=== PATIENT | female | born 1980 | race Caucasian/White ===

== ENCOUNTER → 2017-05-22 | Outpatient (REF) | payer MEDICARE, OTHER ==
[2017-05-22 14:27] LABS: CHOLESTEROL LEVEL 196 MG/DL (<200); CHOLESTEROL RISK RATIO 4.355 (<5); FERRITIN 29 NG/ML (8-252); HDL CHOLESTEROL 45 MG/DL (>40); IRON (FE) 82 UG/DL (50-170); LDL CHOLESTEROL 74.4 MG/DL (<100); NON-HDL-C 151 MG/DL; PERCENT SATURATION 24.9 % (13.2-45.0); TOTAL IRON BINDING CAPACITY 329 UG/DL (250-450); TRIGLYCERIDES LEVEL 383 MG/DL (<150)
[2017-05-24 00:07] LABS: FK 506 (TACROLIMUS) LABCORP 2.1 ng/mL (2.0-20.0)
== END ==
LOC: M LAB REF 13:51
DX: N18.3 Chronic kidney disease, stage 3 (moderate) (principal); Z48.22 Encounter for aftercare following kidney transplant; D63.1 Anemia in chronic kidney disease
CPT/HCPCS: 83550

== ENCOUNTER → 2017-06-07 | Outpatient (REF) | payer MEDICARE, OTHER ==
[2017-06-10 08:06] LABS: FK 506 (TACROLIMUS) LABCORP 6.3 ng/mL (2.0-20.0)
== END ==
LOC: M LAB REF 13:26
DX: N18.9 Chronic kidney disease, unspecified (principal); D63.1 Anemia in chronic kidney disease
CPT/HCPCS: 80197

== ENCOUNTER 2017-07-03 06:19 | Emergency (ER) | payer MEDICARE, OTHER ==
[2017-07-03 07:47] LABS: BASO % 0.1 % (0.0-1.0); EOS % 0.3 % (0.0-3.0); HEMATOCRIT 33.7 % (36.0-47.0); HEMOGLOBIN 10.7 g/dl (12.0-16.0); IMMATURE GRANULOCYTE % 0.4 % (0-3.0); LYMPH # 0.9 10^3/uL (1.5-4.5); LYMPH % 5.9 % (24.0-44.0); MEAN CORPUSCULAR HGB CONC 31.8 g/dl (32.0-36.5); MEAN CORPUSCULAR VOLUME 85.1 fl (80.0-96.0); MONO # 0.9 10^3/uL (0.0-0.8); MONO % 6.1 % (0.0-5.0); NEUTROPHILS # 13.6 10^3/uL (1.8-7.7); NEUTROPHILS % 87.2 % (36.0-66.0); PLATELET COUNT, AUTOMATED 271 10^3/uL (150-450); RED BLOOD COUNT 3.96 10^6/uL (4.00-5.40); RED CELL DISTRIBUTION WIDTH 14.7 % (11.5-14.5); WHITE BLOOD COUNT 15.5 10^3/uL (4.0-10.0)
[2017-07-03] MEDS: NS 1,000 ML IV (07:47)
[2017-07-03] MEDS: ACETAMINOPHEN 325 MG TAB PO (07:47)
[2017-07-03 08:10] LABS: ALBUMIN 3.7 GM/DL (3.2-5.2); ALBUMIN/GLOBULIN RATIO 1.12 (1.00-1.93); ALKALINE PHOSPHATASE 58 U/L (45-117); ALT/SGPT 15 U/L (12-78); ANION GAP 8 MEQ/L (8-16); AST/SGOT 6 U/L (7-37); BILIRUBIN,DIRECT < 0.1 MG/DL (0.0-0.2); BILIRUBIN,TOTAL 0.4 MG/DL (0.2-1.0); BLOOD UREA NITROGEN 26 MG/DL (7-18); CALCIUM LEVEL 8.6 MG/DL (8.5-10.1); CARBON DIOXIDE LEVEL 27 MEQ/L (21-32); CHLORIDE LEVEL 102 MEQ/L (98-107); GLOMERULAR FILTRATION RATE 25.5 (>60); GLUCOSE, FASTING 162 MG/DL (70-100); POTASSIUM SERUM 4.1 MEQ/L (3.5-5.1); SODIUM LEVEL 137 MEQ/L (136-145)
[2017-07-03 08:10] LABS: LACTIC ACID SEPSIS PROTOCOL 2.3 MMOL/L (0.4-2.0)
[2017-07-03 08:20] LABS: INFLUENZA A AMPLIFICATION NEGATIVE (NEGATIVE); INFLUENZA B AMPLIFICATION NEGATIVE (NEGATIVE)
[2017-07-03 09:12] LABS: APPEARANCE, URINE CLEAR (CLEAR); BACTERIA, URINE AUTO 1+ (NEGATIVE); BILIRUBIN, URINE AUTO NEGATIVE (NEGATIVE); BLOOD, URINE BLOOD 2+ (NEGATIVE); COLOR, URINE YELLOW (YELLOW); GLUCOSE, URINE (UA) AUTO NEGATIVE (NEGATIVE); KETONE, URINE AUTO NEGATIVE (NEGATIVE); LEUKOCYTE ESTERASE, URINE AUTO TRACE (NEGATIVE); MUCUS, URINE SMALL (NEGATIVE); NITRITE, URINE AUTO NEGATIVE (NEGATIVE); PROTEIN, URINE AUTO NEGATIVE (NEGATIVE); RBC, URINE AUTO 7 /HPF (0-3); SPECIFIC GRAVITY URINE AUTO 1.013 (1.002-1.035); SQUAMOUS EPITHELIAL CELL UR AU 1 /HPF (0-6); UROBILINOGEN, URINE AUTO 0.2 mg/dL (0.0-2.0); WBC, URINE AUTO 11 /HPF (0-3)
[2017-07-03] MEDS: CEFTRIAXONE SOD 2 GM in APPROPRIATE DILUENT 1 EA IV (11:03)
== END 2017-07-03 11:14 | disposition home or self-care (01) ==
LOC: M ED 06:19
DX: R50.9 Fever, unspecified (principal); D84.9 Immunodeficiency, unspecified; N28.9 Disorder of kidney and ureter, unspecified; Z94.0 Kidney transplant status; Z79.899 Other long term (current) drug therapy; Z88.1 Allergy status to other antibiotic agents; Z88.8 Allergy status to other drugs, medicaments and biological substances
CPT/HCPCS: 71046

== ENCOUNTER → 2017-07-06 | Outpatient (REF) | payer MEDICARE, OTHER | LOC: M LAB REF 10:21 | DX: N18.9 Chronic kidney disease, unspecified (principal); D63.1 Anemia in chronic kidney disease | CPT/HCPCS: 80197 ==

== ENCOUNTER 2017-07-29 22:35 | Emergency (ER) | payer MEDICARE, OTHER ==
[2017-07-29 23:52] LABS: BASO % 0.3 % (0.0-1.0); EOS # 0.2 10^3/uL (0.0-0.50); EOS % 1.5 % (0.0-3.0); HEMATOCRIT 29.9 % (36.0-47.0); HEMOGLOBIN 9.6 g/dl (12.0-16.0); IMMATURE GRANULOCYTE % 0.6 % (0-3.0); LYMPH % 18.5 % (24.0-44.0); MEAN CORPUSCULAR HEMOGLOBIN 27.3 pg (27.0-33.0); MEAN CORPUSCULAR HGB CONC 32.1 g/dl (32.0-36.5); MEAN CORPUSCULAR VOLUME 84.9 fl (80.0-96.0); MONO # 0.7 10^3/uL (0.0-0.8); MONO % 6.2 % (0.0-5.0); NEUTROPHILS % 72.9 % (36.0-66.0); PLATELET COUNT, AUTOMATED 328 10^3/uL (150-450); RED BLOOD COUNT 3.52 10^6/uL (4.00-5.40); RED CELL DISTRIBUTION WIDTH 13.7 % (11.5-14.5)
== END 2017-07-30 00:24 | disposition home or self-care (01) ==
LOC: M ED 07-30 00:24
DX: N92.0 Excessive and frequent menstruation with regular cycle (principal); N83.201 Unspecified ovarian cyst, right side; N83.202 Unspecified ovarian cyst, left side; N80.9 Endometriosis, unspecified; Z79.899 Other long term (current) drug therapy; Z88.0 Allergy status to penicillin; Z88.8 Allergy status to other drugs, medicaments and biological substances
CPT/HCPCS: 76856

== ENCOUNTER → 2017-08-24 | Outpatient (REF) | payer MEDICARE, OTHER ==
[2017-08-24 14:35] LABS: VITAMIN B12 LEVEL 422 PG/ML
[2017-08-24 14:36] LABS: FOLATE 13.2 NG/ML
[2017-08-26 08:07] LABS: FK 506 (TACROLIMUS) LABCORP 2.9 ng/mL (2.0-20.0)
== END ==
LOC: M LAB REF 13:46
DX: N18.9 Chronic kidney disease, unspecified (principal); D63.1 Anemia in chronic kidney disease; N92.0 Excessive and frequent menstruation with regular cycle
CPT/HCPCS: 82746

== ENCOUNTER → 2017-10-10 | Outpatient (REF) | payer MEDICARE, OTHER ==
[2017-10-12 08:06] LABS: FK 506 (TACROLIMUS) LABCORP 5.9 ng/mL (2.0-20.0)
== END ==
LOC: M LAB REF 13:30
DX: N18.9 Chronic kidney disease, unspecified (principal); D63.1 Anemia in chronic kidney disease
CPT/HCPCS: 80197

== ENCOUNTER → 2018-01-05 | Outpatient (REF) | payer MEDICARE, OTHER ==
[2018-01-05 14:52] LABS: FERRITIN 10 NG/ML (8-252); IRON (FE) 36 UG/DL (50-170); PERCENT SATURATION 11.3 % (13.2-45.0); TOTAL IRON BINDING CAPACITY 320 UG/DL (250-450)
[2018-01-08 08:35] LABS: FK 506 (TACROLIMUS) LABCORP 4.9
== END ==
LOC: M LAB REF 13:20
DX: N18.3 Chronic kidney disease, stage 3 (moderate) (principal); D63.1 Anemia in chronic kidney disease
CPT/HCPCS: 83550

== ENCOUNTER 2018-01-13 21:20 | Inpatient (IN) | payer MEDICARE, OTHER ==
[2018-01-13] MEDS: MYCOPHENOLATE MOFETIL 250 MG CAP (J7517) PO (22:19)
[2018-01-13] MEDS: TACROLIMUS 1 MG CAP (J7507) PO (22:20)
[2018-01-13] MEDS: NS 1,000 ML IV (22:33)
[2018-01-13] MEDS: HYDROMORPHONE HCL 0.5 MG/ 0.5 ML SYRINGE (J1170 PER 1) IV (23:10)
[2018-01-14] MEDS: NORCO, ANEXSIA 5/325MG TABLET (HYDROcodone/ACETAMINOPHEN) PO ×5 (01:06→20:20)
[2018-01-14 01:47] LABS: HEMATOCRIT 28.8 % (36.0-47.0); HEMOGLOBIN 9.2 g/dl (12.0-15.5); MEAN CORPUSCULAR HEMOGLOBIN 26.6 pg (27.0-33.0); MEAN CORPUSCULAR HGB CONC 31.9 g/dl (32.0-36.5); MEAN CORPUSCULAR VOLUME 83.2 fl (80.0-96.0); PLATELET COUNT, AUTOMATED 295 10^3/uL (150-450); RED BLOOD COUNT 3.46 10^6/uL (4.00-5.40); RED CELL DISTRIBUTION WIDTH 14.9 % (11.5-14.5); WHITE BLOOD COUNT 14.2 10^3/uL (4.0-10.0)
[2018-01-14 02:10] LABS: ALBUMIN/GLOBULIN RATIO 0.77 (1.00-1.93); ALKALINE PHOSPHATASE 54 U/L (45-117); ALT/SGPT 12 U/L (12-78); ANION GAP 7 MEQ/L (8-16); AST/SGOT 9 U/L (7-37); BILIRUBIN,TOTAL 0.3 MG/DL (0.2-1.0); BLOOD UREA NITROGEN 20 MG/DL (7-18); CALCIUM LEVEL 7.8 MG/DL (8.5-10.1); CARBON DIOXIDE LEVEL 21 MEQ/L (21-32); CHLORIDE LEVEL 111 MEQ/L (98-107); CREATININE FOR GFR 2.36 MG/DL (0.55-1.30); GLOMERULAR FILTRATION RATE 24.7 (>60); GLUCOSE, FASTING 179 MG/DL (70-100); POTASSIUM SERUM 3.9 MEQ/L (3.5-5.1); SODIUM LEVEL 139 MEQ/L (136-145); TOTAL PROTEIN 6.9 GM/DL (6.4-8.2)
[2018-01-14 02:14] LABS: LACTIC ACID SEPSIS PROTOCOL 1.3 MMOL/L (0.4-2.0)
[2018-01-14] MEDS: NS 1,000 ML IV (05:20)
[2018-01-14] MEDS: HEPARIN SOD (PORCINE) 5000 UNITS/ML VIAL SC (05:20)
[2018-01-14] MEDS ORDERED: HEPARIN SOD (PORCINE) 5000 UNITS/ML VIAL IV (07:15)
[2018-01-14 08:13] LABS: PARTIAL THROMBOPLASTIN TIME 33.4 SECONDS (25.4-37.6)
[2018-01-14] MEDS: MYCOPHENOLATE SODIUM 360 MG PO ×2 (09:00→20:18)
[2018-01-14] MEDS ORDERED: ENTER DRUG NAME HERE (PATIENT'S OWN MED) PO (09:00)
[2018-01-14] MEDS: VITAMIN D 1,000 INTERNATIONAL UNITS TABLET PO (09:55)
[2018-01-14] MEDS: cefTRIAXone SOD 1 GM in D5W MINI-BAG PLUS 50 ML IV (09:55)
[2018-01-14] MEDS: TACROLIMUS 1 MG CAP (J7507) PO ×2 (09:56→20:19)
[2018-01-14] MEDS: PANTOPRAZOLE 40MG TAB (PROTONIX) PO (09:56)
[2018-01-14] MEDS: predniSONE 5 MG TAB PO (09:57)
[2018-01-14] MEDS: FERROUS SULFATE 325MG TAB PO (09:57)
[2018-01-14 10:32] LABS: AMORPHOUS SEDIMENT RFX SMALL (NEGATIVE); KETONE, URINE AUTO RFX NEGATIVE (NEGATIVE); LEUKOCYTE ESTERASE UR AUTO RFX 1+ (NEGATIVE); NITRITE, URINE AUTO RFX NEGATIVE (NEGATIVE); RBC, URINE AUTO RFX 6 /HPF (0-3); SPECIFIC GRAVITY UR AUTO RFX 1.019 (1.002-1.035); SQUAM EPITHELIAL CELL UR AURFX 1 /HPF (0-6); WBC, URINE AUTO RFX 11 /HPF (0-3)
[2018-01-14 11:03] LABS: CPK CREATINE PHOSPHOKINASE 18 U/L (26-192)
[2018-01-14] MEDS: HEPARIN DRIP 25,000 UNITS in APPROPRIATE DILUENT 1 EA IV (11:20)
[2018-01-14] MEDS: READI-CAT 2 PO ×2 (11:27→12:08)
[2018-01-14] MEDS: methylPREDNISolone INJ 125 MG/2 ML VIAL (J2930) IV (16:18)
[2018-01-14 18:26] LABS: PARTIAL THROMBOPLASTIN TIME 37.3 SECONDS (25.4-37.6)
[2018-01-14 18:29] LABS: ESTIMATED AVERAGE GLUCOSE 91 MG/DL (60-110); HEMOGLOBIN A1c 4.8 %
[2018-01-14 18:32] LABS: LIPASE 93 U/L (73-393)
[2018-01-14] MEDS: CARISOPRODOL 350 MG TAB PO (20:19)
[2018-01-14 23:56] LABS: PARTIAL THROMBOPLASTIN TIME 57.4 SECONDS (25.4-37.6)
[2018-01-15] MEDS: NORCO, ANEXSIA 5/325MG TABLET (HYDROcodone/ACETAMINOPHEN) PO ×5 (00:52→18:30)
[2018-01-15] MEDS: HEPARIN DRIP 25,000 UNITS in APPROPRIATE DILUENT 1 EA IV ×2 (05:25→21:26)
[2018-01-15 07:50] LABS: HEMATOCRIT 26.3 % (36.0-47.0); HEMOGLOBIN 8.2 g/dl (12.0-15.5); MEAN CORPUSCULAR HEMOGLOBIN 26.2 pg (27.0-33.0); MEAN CORPUSCULAR HGB CONC 31.2 g/dl (32.0-36.5); PLATELET COUNT, AUTOMATED 261 10^3/uL (150-450); RED BLOOD COUNT 3.13 10^6/uL (4.00-5.40); RED CELL DISTRIBUTION WIDTH 14.9 % (11.5-14.5); WHITE BLOOD COUNT 11.8 10^3/uL (4.0-10.0)
[2018-01-15 08:06] LABS: PARTIAL THROMBOPLASTIN TIME 82.5 SECONDS (25.4-37.6)
[2018-01-15] MEDS ORDERED: BENZONATATE 100 MG CAP PO (08:30)
[2018-01-15] MEDS ORDERED: medroxyPROGESTERone ACET IM SUSP 150 MG/ML VIAL (J1050) IM (09:00)
[2018-01-15 09:20] LABS: ANION GAP 9 MEQ/L (8-16); BLOOD UREA NITROGEN 23 MG/DL (7-18); CARBON DIOXIDE LEVEL 19 MEQ/L (21-32); CHLORIDE LEVEL 109 MEQ/L (98-107); GLOMERULAR FILTRATION RATE 24.2 (>60); GLUCOSE, FASTING 298 MG/DL (70-100); MAGNESIUM LEVEL 1.9 MG/DL (1.8-2.4); PHOSPHORUS LEVEL 0.8 MG/DL (2.5-4.9); POTASSIUM SERUM 4.8 MEQ/L (3.5-5.1); SODIUM LEVEL 137 MEQ/L (136-145)
[2018-01-15] MEDS: TACROLIMUS 1 MG CAP (J7507) PO ×2 (09:21→21:27)
[2018-01-15] MEDS: predniSONE 20 MG TAB PO (09:21)
[2018-01-15] MEDS: PANTOPRAZOLE 40MG TAB (PROTONIX) PO (09:21)
[2018-01-15] MEDS: guaiFENesin ER 600 MG TAB PO ×2 (09:21→21:27)
[2018-01-15] MEDS: VITAMIN D 1,000 INTERNATIONAL UNITS TABLET PO (09:21)
[2018-01-15] MEDS: FERROUS SULFATE 325MG TAB PO (09:22)
[2018-01-15] MEDS: cefTRIAXone SOD 1 GM in D5W MINI-BAG PLUS 50 ML IV (09:22)
[2018-01-15] MEDS: MYCOPHENOLATE SODIUM 360 MG PO ×2 (09:23→21:27)
[2018-01-15] MEDS: medroxyPROGESTERone ACET IM SUSP 150 MG/ML VIAL (J1050) IM (09:30)
[2018-01-15 11:04] LABS: HCG, SERUM QUANTITATIVE < 1.0 MIU/ML
[2018-01-15 13:10] LABS: PARTIAL THROMBOPLASTIN TIME 71.2 SECONDS (25.4-37.6)
[2018-01-15] MEDS ORDERED: GLUCOSE 4 GM CHEW TABLET PO (14:45)
[2018-01-15] MEDS ORDERED: GLUCAGON FOR INJ 1 MG VIAL (J1610) SC (14:45)
[2018-01-15] MEDS ORDERED: DEXTROSE 50% 50 ML SYRINGE IV (14:45)
[2018-01-15 16:25] LABS: BEDSIDE GLUCOSE 197 MG/DL (70-105)
[2018-01-15] MEDS: HumaLOG INSULIN (NovoLOG) PER UNIT SC (18:27)
[2018-01-15 20:37] LABS: BEDSIDE GLUCOSE 268 MG/DL (70-105)
[2018-01-15] MEDS: CARISOPRODOL 350 MG TAB PO (21:27)
[2018-01-16 07:29] LABS: HEMATOCRIT 28.6 % (36.0-47.0); HEMOGLOBIN 8.9 g/dl (12.0-15.5); MEAN CORPUSCULAR HEMOGLOBIN 26.3 pg (27.0-33.0); MEAN CORPUSCULAR HGB CONC 31.1 g/dl (32.0-36.5); MEAN CORPUSCULAR VOLUME 84.6 fl (80.0-96.0); RED BLOOD COUNT 3.38 10^6/uL (4.00-5.40); RED CELL DISTRIBUTION WIDTH 15.2 % (11.5-14.5); WHITE BLOOD COUNT 15.9 10^3/uL (4.0-10.0)
[2018-01-16 07:32] LABS: ANION GAP 11 MEQ/L (8-16); BLOOD UREA NITROGEN 32 MG/DL (7-18); C REACTIVE PROTEIN QUANTITATIV 9.87 MG/DL (0.00-0.30); CALCIUM LEVEL 8.7 MG/DL (8.5-10.1); CARBON DIOXIDE LEVEL 20 MEQ/L (21-32); CHLORIDE LEVEL 112 MEQ/L (98-107); CREATININE FOR GFR 2.46 MG/DL (0.55-1.30); GLOMERULAR FILTRATION RATE 23.5 (>60); GLUCOSE, FASTING 141 MG/DL (70-100); MAGNESIUM LEVEL 2.2 MG/DL (1.8-2.4); POTASSIUM SERUM 3.9 MEQ/L (3.5-5.1); SODIUM LEVEL 143 MEQ/L (136-145)
[2018-01-16 07:34] LABS: PLATELET COUNT, AUTOMATED 405 10^3/uL (150-450)
[2018-01-16 07:34] LABS: PARTIAL THROMBOPLASTIN TIME 60.3 SECONDS (25.4-37.6)
[2018-01-16] MEDS: NORCO, ANEXSIA 5/325MG TABLET (HYDROcodone/ACETAMINOPHEN) PO ×2 (07:58→14:45)
[2018-01-16] MEDS: HumaLOG INSULIN (NovoLOG) PER UNIT SC ×3 (07:58→17:30)
[2018-01-16] MEDS: cefTRIAXone SOD 1 GM in D5W MINI-BAG PLUS 50 ML IV (07:59)
[2018-01-16] MEDS: MYCOPHENOLATE SODIUM 360 MG PO ×2 (09:00→20:40)
[2018-01-16] MEDS: guaiFENesin ER 600 MG TAB PO ×2 (09:20→20:40)
[2018-01-16] MEDS: FERROUS SULFATE 325MG TAB PO (09:20)
[2018-01-16] MEDS: PANTOPRAZOLE 40MG TAB (PROTONIX) PO (09:20)
[2018-01-16] MEDS: TACROLIMUS 1 MG CAP (J7507) PO ×2 (09:21→20:39)
[2018-01-16] MEDS: VITAMIN D 1,000 INTERNATIONAL UNITS TABLET PO (09:21)
[2018-01-16] MEDS: predniSONE 20 MG TAB PO (09:21)
[2018-01-16 12:27] LABS: BEDSIDE GLUCOSE 192 MG/DL (70-105)
[2018-01-16 12:31] LABS: CA 125 2607.4 U/ML (<30.2)
[2018-01-16 13:39] LABS: PARTIAL THROMBOPLASTIN TIME 60.9 SECONDS (25.4-37.6)
[2018-01-16 16:43] LABS: BEDSIDE GLUCOSE 238 MG/DL (70-105)
[2018-01-16] MEDS ORDERED: ONDANSETRON 4MG/2ML VIAL (J2405) IV (18:30)
[2018-01-16] MEDS: CARISOPRODOL 350 MG TAB PO (20:39)
[2018-01-17] MEDS: NORCO, ANEXSIA 5/325MG TABLET (HYDROcodone/ACETAMINOPHEN) PO (00:58)
[2018-01-17 04:24] LABS: BEDSIDE GLUCOSE 266 MG/DL (70-105)
[2018-01-17 04:24] LABS: BEDSIDE GLUCOSE 159 MG/DL (70-105)
[2018-01-17 05:58] LABS: HEMATOCRIT 26.3 % (36.0-47.0); HEMOGLOBIN 8.2 g/dl (12.0-15.5); MEAN CORPUSCULAR HEMOGLOBIN 26.1 pg (27.0-33.0); MEAN CORPUSCULAR HGB CONC 31.2 g/dl (32.0-36.5); MEAN CORPUSCULAR VOLUME 83.8 fl (80.0-96.0); PLATELET COUNT, AUTOMATED 365 10^3/uL (150-450); RED BLOOD COUNT 3.14 10^6/uL (4.00-5.40); RED CELL DISTRIBUTION WIDTH 14.9 % (11.5-14.5); WHITE BLOOD COUNT 9.4 10^3/uL (4.0-10.0)
[2018-01-17 06:07] LABS: ANION GAP 12 MEQ/L (8-16); BLOOD UREA NITROGEN 31 MG/DL (7-18); CALCIUM LEVEL 8.8 MG/DL (8.5-10.1); CARBON DIOXIDE LEVEL 21 MEQ/L (21-32); CHLORIDE LEVEL 112 MEQ/L (98-107); CREATININE FOR GFR 2.08 MG/DL (0.55-1.30); GLOMERULAR FILTRATION RATE 28.5 (>60); GLUCOSE, FASTING 116 MG/DL (70-100); POTASSIUM SERUM 4.4 MEQ/L (3.5-5.1); SODIUM LEVEL 145 MEQ/L (136-145)
[2018-01-17 06:19] LABS: FERRITIN 273 NG/ML (8-252); IRON (FE) 47 UG/DL (50-170); PERCENT SATURATION 18.7 % (13.2-45.0); TOTAL IRON BINDING CAPACITY 252 UG/DL (250-450)
[2018-01-17] MEDS: HumaLOG INSULIN (NovoLOG) PER UNIT SC ×3 (08:35→18:08)
[2018-01-17] MEDS: cefTRIAXone SOD 1 GM in D5W MINI-BAG PLUS 50 ML IV (08:36)
[2018-01-17] MEDS: PANTOPRAZOLE 40MG TAB (PROTONIX) PO (08:36)
[2018-01-17] MEDS: predniSONE 20 MG TAB PO (08:36)
[2018-01-17] MEDS: FERROUS SULFATE 325MG TAB PO (08:37)
[2018-01-17] MEDS: VITAMIN D 1,000 INTERNATIONAL UNITS TABLET PO (08:37)
[2018-01-17] MEDS: TACROLIMUS 1 MG CAP (J7507) PO ×2 (08:37→21:23)
[2018-01-17] MEDS: MYCOPHENOLATE SODIUM 360 MG PO ×2 (08:37→21:23)
[2018-01-17] MEDS: AZITHROMYCIN 250 MG TAB PO (08:37)
[2018-01-17] MEDS: guaiFENesin ER 600 MG TAB PO ×2 (08:37→21:23)
[2018-01-17 08:56] LABS: BASO % 0.1 % (0.0-1.0); EOS % 0.4 % (0.0-3.0); IMMATURE GRANULOCYTE # 0.1 10^3/uL (0-0); IMMATURE GRANULOCYTE % 1.4 % (0-3.0); LYMPH # 1.4 10^3/uL (1.5-4.5); LYMPH % 14.7 % (24.0-44.0); MONO # 0.6 10^3/uL (0.0-0.8); MONO % 6.5 % (0.0-5.0); NEUTROPHILS # 7.3 10^3/uL (1.8-7.7); NEUTROPHILS % 76.9 % (36.0-66.0)
[2018-01-17 09:01] LABS: NT-PRO BNP 7827 PG/ML (<125)
[2018-01-17 16:59] LABS: BEDSIDE GLUCOSE 219 MG/DL (70-105)
[2018-01-17 17:46] LABS: BEDSIDE GLUCOSE 133 MG/DL (70-105)
[2018-01-17] MEDS ORDERED: ENTER DRUG NAME HERE (PATIENT'S OWN MED) PO (21:00)
[2018-01-17] MEDS: CARISOPRODOL 350 MG TAB PO (21:23)
[2018-01-18 06:41] LABS: HEMATOCRIT 25.7 % (36.0-47.0); HEMOGLOBIN 8.1 g/dl (12.0-15.5); MEAN CORPUSCULAR HEMOGLOBIN 26.4 pg (27.0-33.0); MEAN CORPUSCULAR HGB CONC 31.5 g/dl (32.0-36.5); MEAN CORPUSCULAR VOLUME 83.7 fl (80.0-96.0); PLATELET COUNT, AUTOMATED 348 10^3/uL (150-450); RED BLOOD COUNT 3.07 10^6/uL (4.00-5.40); RED CELL DISTRIBUTION WIDTH 14.5 % (11.5-14.5); WHITE BLOOD COUNT 7.8 10^3/uL (4.0-10.0)
[2018-01-18 06:50] LABS: ANION GAP 13 MEQ/L (8-16); BLOOD UREA NITROGEN 26 MG/DL (7-18); C REACTIVE PROTEIN QUANTITATIV 2.38 MG/DL (0.00-0.30); CALCIUM LEVEL 8.6 MG/DL (8.5-10.1); CARBON DIOXIDE LEVEL 21 MEQ/L (21-32); CHLORIDE LEVEL 111 MEQ/L (98-107); CREATININE FOR GFR 1.77 MG/DL (0.55-1.30); GLOMERULAR FILTRATION RATE 34.4 (>60); GLUCOSE, FASTING 97 MG/DL (70-100); MAGNESIUM LEVEL 1.7 MG/DL (1.8-2.4); POTASSIUM SERUM 3.8 MEQ/L (3.5-5.1); SODIUM LEVEL 145 MEQ/L (136-145)
[2018-01-18] MEDS: HumaLOG INSULIN (NovoLOG) PER UNIT SC ×3 (07:30→17:25)
[2018-01-18] MEDS: MAG SULF 1GM/100ML (MAG RUN) 1 GM in APPROPRIATE DILUENT 1 EA IV (07:49)
[2018-01-18 08:17] LABS: BEDSIDE GLUCOSE 233 MG/DL (70-105)
[2018-01-18] MEDS: cefTRIAXone SOD 1 GM in D5W MINI-BAG PLUS 50 ML IV (09:08)
[2018-01-18] MEDS: MYCOPHENOLATE SODIUM 360 MG PO ×2 (09:08→19:52)
[2018-01-18] MEDS: TACROLIMUS 1 MG CAP (J7507) PO ×2 (09:09→19:52)
[2018-01-18] MEDS: PANTOPRAZOLE 40MG TAB (PROTONIX) PO (09:09)
[2018-01-18] MEDS: VITAMIN D 1,000 INTERNATIONAL UNITS TABLET PO (09:09)
[2018-01-18] MEDS: AZITHROMYCIN 250 MG TAB PO (09:09)
[2018-01-18] MEDS: guaiFENesin ER 600 MG TAB PO ×2 (09:10→19:52)
[2018-01-18] MEDS: FERROUS SULFATE 325MG TAB PO (09:10)
[2018-01-18] MEDS: predniSONE 5 MG TAB PO (09:10)
[2018-01-18] MEDS: FUROSEMIDE 40 MG TAB PO (12:57)
[2018-01-18] MEDS: NORCO, ANEXSIA 5/325MG TABLET (HYDROcodone/ACETAMINOPHEN) PO (19:53)
[2018-01-18] MEDS: CARISOPRODOL 350 MG TAB PO (19:53)
[2018-01-18 21:03] LABS: BEDSIDE GLUCOSE 190 MG/DL (70-105)
[2018-01-18 21:03] LABS: BEDSIDE GLUCOSE 194 MG/DL (70-105)
[2018-01-18 21:03] LABS: BEDSIDE GLUCOSE 166 MG/DL (70-105)
[2018-01-19] MEDS: NORCO, ANEXSIA 5/325MG TABLET (HYDROcodone/ACETAMINOPHEN) PO (04:11)
[2018-01-19] MEDS: MOXIFLOXACIN 400 MG TAB PO (05:32)
[2018-01-19 06:54] LABS: HEMATOCRIT 29.8 % (36.0-47.0); HEMOGLOBIN 9.6 g/dl (12.0-15.5); MEAN CORPUSCULAR HEMOGLOBIN 26.3 pg (27.0-33.0); MEAN CORPUSCULAR HGB CONC 32.2 g/dl (32.0-36.5); MEAN CORPUSCULAR VOLUME 81.6 fl (80.0-96.0); PLATELET COUNT, AUTOMATED 382 10^3/uL (150-450); RED BLOOD COUNT 3.65 10^6/uL (4.00-5.40); RED CELL DISTRIBUTION WIDTH 13.9 % (11.5-14.5); WHITE BLOOD COUNT 8.9 10^3/uL (4.0-10.0)
[2018-01-19 07:11] LABS: ANION GAP 11 MEQ/L (8-16); BLOOD UREA NITROGEN 27 MG/DL (7-18); C REACTIVE PROTEIN QUANTITATIV 1.46 MG/DL (0.00-0.30); CALCIUM LEVEL 8.3 MG/DL (8.5-10.1); CARBON DIOXIDE LEVEL 23 MEQ/L (21-32); CHLORIDE LEVEL 108 MEQ/L (98-107); CREATININE FOR GFR 1.89 MG/DL (0.55-1.30); GLOMERULAR FILTRATION RATE 31.9 (>60); GLUCOSE, FASTING 145 MG/DL (70-100); MAGNESIUM LEVEL 1.9 MG/DL (1.8-2.4); NT-PRO BNP 554 PG/ML (<125); POTASSIUM SERUM 3.4 MEQ/L (3.5-5.1); SODIUM LEVEL 142 MEQ/L (136-145)
[2018-01-19] MEDS: HumaLOG INSULIN (NovoLOG) PER UNIT SC (07:59)
[2018-01-19] MEDS: TACROLIMUS 1 MG CAP (J7507) PO (09:26)
[2018-01-19] MEDS: MYCOPHENOLATE SODIUM 360 MG PO (09:26)
[2018-01-19] MEDS: VITAMIN D 1,000 INTERNATIONAL UNITS TABLET PO (09:27)
[2018-01-19] MEDS: POTASSIUM CHLORIDE 10 MEQ SR TABLET PO (09:27)
[2018-01-19] MEDS: predniSONE 5 MG TAB PO (09:27)
[2018-01-19] MEDS: PANTOPRAZOLE 40MG TAB (PROTONIX) PO (09:27)
[2018-01-19] MEDS: FUROSEMIDE 40 MG TAB PO (09:28)
[2018-01-19] MEDS: guaiFENesin ER 600 MG TAB PO (09:28)
[2018-01-19] MEDS: FERROUS SULFATE 325MG TAB PO (09:28)
[2018-01-20 14:10] LABS: BODY FLUID CULTURE Not Indicated (.); LEGIONELLA ANTIGEN URINE Negative (Negative); ORGANISM ID Not indicated. (.); SPECIMEN SOURCE Urine (.); URINE STREP PNEUMONIAE ANTIGEN Negative (Negative)
== END 2018-01-19 11:50 | disposition home or self-care (01) | DRG 194 ==
LOC: M ED INP 01-14 00:59 → M MS5PR 01-16 16:06 → M ED 21:20
DX: J18.9 Pneumonia, unspecified organism (principal); Z94.0 Kidney transplant status; N39.0 Urinary tract infection, site not specified; N17.9 Acute kidney failure, unspecified; N18.4 Chronic kidney disease, stage 4 (severe); R10.13 Epigastric pain; N93.8 Other specified abnormal uterine and vaginal bleeding; R19.03 Right lower quadrant abdominal swelling, mass and lump; D63.1 Anemia in chronic kidney disease; D50.0 Iron deficiency anemia secondary to blood loss (chronic); N26.9 Renal sclerosis, unspecified; N94.10 Unspecified dyspareunia; D50.9 Iron deficiency anemia, unspecified; R73.9 Hyperglycemia, unspecified; E11.65 Type 2 diabetes mellitus with hyperglycemia; Z79.52 Long term (current) use of systemic steroids; Z79.891 Long term (current) use of opiate analgesic; Z79.899 Other long term (current) drug therapy; Z88.1 Allergy status to other antibiotic agents; Z88.8 Allergy status to other drugs, medicaments and biological substances

== ENCOUNTER → 2018-01-24 | Outpatient (REF) | payer MEDICARE | LOC: M LAB REF 18:22 | DX: B35.3 Tinea pedis (principal) | CPT/HCPCS: 87101 ==

== ENCOUNTER → 2018-02-01 | Outpatient (REF) | payer MEDICARE ==
[2018-02-05 12:19] LABS: FK 506 (TACROLIMUS) LABCORP 4.5 ng/mL (2.0-20.0)
== END ==
LOC: M LAB REF 14:25
DX: N18.3 Chronic kidney disease, stage 3 (moderate) (principal); D63.1 Anemia in chronic kidney disease
CPT/HCPCS: 80197

== ENCOUNTER → 2018-02-13 | Outpatient (REF) | payer MEDICARE ==
[2018-02-13 18:46] LABS: BASO % 0.4 % (0.0-1.0); EOS # 0.2 10^3/uL (0.0-0.50); EOS % 1.9 % (0.0-3.0); HEMATOCRIT 32.6 % (36.0-47.0); IMMATURE GRANULOCYTE % 0.5 % (0-3.0); LYMPH # 1.3 10^3/uL (1.5-4.5); MEAN CORPUSCULAR HEMOGLOBIN 26.6 pg (27.0-33.0); MEAN CORPUSCULAR HGB CONC 30.7 g/dl (32.0-36.5); MEAN CORPUSCULAR VOLUME 86.7 fl (80.0-96.0); MONO # 0.5 10^3/uL (0.0-0.8); MONO % 5.8 % (0.0-5.0); NEUTROPHILS # 6.2 10^3/uL (1.8-7.7); NEUTROPHILS % 75.4 % (36.0-66.0); PLATELET COUNT, AUTOMATED 301 10^3/uL (150-450); RED BLOOD COUNT 3.76 10^6/uL (4.00-5.40); RED CELL DISTRIBUTION WIDTH 14.7 % (11.5-14.5); WHITE BLOOD COUNT 8.2 10^3/uL (4.0-10.0)
[2018-02-13 19:37] LABS: ALBUMIN 3.8 GM/DL (3.2-5.2); ALBUMIN/GLOBULIN RATIO 1.23 (1.00-1.93); ALKALINE PHOSPHATASE 44 U/L (45-117); ALT/SGPT 13 U/L (12-78); ANION GAP 7 MEQ/L (8-16); AST/SGOT 3 U/L (7-37); BILIRUBIN,TOTAL 0.2 MG/DL (0.2-1.0); BLOOD UREA NITROGEN 17 MG/DL (7-18); CALCIUM LEVEL 9.3 MG/DL (8.5-10.1); CARBON DIOXIDE LEVEL 26 MEQ/L (21-32); CHLORIDE LEVEL 110 MEQ/L (98-107); CREATININE FOR GFR 1.68 MG/DL (0.55-1.30); GLOMERULAR FILTRATION RATE 36.5 (>60); GLUCOSE, FASTING 123 MG/DL (70-100); LIPASE 179 U/L (73-393); POTASSIUM SERUM 4.1 MEQ/L (3.5-5.1); SODIUM LEVEL 143 MEQ/L (136-145); TOTAL PROTEIN 6.9 GM/DL (6.4-8.2)
[2018-02-13 19:45] LABS: CARCINOEMBRYONIC ANTIGEN 1.7 NG/ML (<2.5)
[2018-02-13 20:13] LABS: CA 125 51.8 U/ML (<30.2)
== END ==
LOC: M LAB REF 18:20
DX: R19.09 Other intra-abdominal and pelvic swelling, mass and lump (principal)
CPT/HCPCS: 82378

== ENCOUNTER → 2018-02-23 | Outpatient (REF) | payer MEDICARE ==
[2018-02-25 10:12] LABS: FK 506 (TACROLIMUS) LABCORP 5.1 ng/mL (2.0-20.0)
== END ==
LOC: M LAB REF 12:59
DX: N18.9 Chronic kidney disease, unspecified (principal); D63.1 Anemia in chronic kidney disease; Z48.22 Encounter for aftercare following kidney transplant; Z94.0 Kidney transplant status; Z51.81 Encounter for therapeutic drug level monitoring
CPT/HCPCS: 80197

== ENCOUNTER → 2018-05-17 | Outpatient (REF) | payer MEDICARE ==
[~2018-05-17] MED LIST: AVEL1TAB3 PO; CARI1TAB7 PO; FERR325T3 PO; LEVA1TAB2 PO; MUCI600T31 PO; MYFO360T PO; OXYC1TAB23 PO; PRED5PAK PO; PRED5TA PO; SUDA1TAB3 PO; TACR1CAP3 PO; TRAZ-160 PO; VITA200016 PO
[2018-05-17 14:11] LABS: PERCENT SATURATION 8.4 % (13.2-45.0)
== END ==
LOC: M LAB REF 13:15
PROVIDERS: ATTEND Internal Medicine Nephrology
DX: Z51.81 Encounter for therapeutic drug level monitoring (principal); Z79.899 Other long term (current) drug therapy; D63.1 Anemia in chronic kidney disease; Z48.22 Encounter for aftercare following kidney transplant; Z94.0 Kidney transplant status

== ENCOUNTER → 2018-08-13 | Outpatient (REF) | payer MEDICARE, OTHER | LOC: M LAB REF 12:45 | PROVIDERS: ATTEND Internal Medicine Nephrology | DX: Z48.22 Encounter for aftercare following kidney transplant (principal); Z51.81 Encounter for therapeutic drug level monitoring ==

== ENCOUNTER → 2018-11-10 | Outpatient (REF) | payer MEDICARE, OTHER ==
[~2018-11-10] MED LIST changes: -TRAZ-160 PO; +TRAZ-252 PO
--- NOTE | 2018-11-11 07:29 | REP ---
Clinical: Heel pain. Technique: Axial and lateral views of the right and left calcaneus. Findings: No acute fracture or dislocation. Skeletal structures and joint spaces appear essentially normal for age. No heel spur. No surrounding soft tissue calcifications. Impression: Age-appropriate bilateral calcaneus radiographs. Electronically Signed by Dexter Allison MD 11/11/2018 07:21 A
== END ==
LOC: M RAD 20:58
PROVIDERS: ATTEND Physician Assistant
DX: M25.571 Pain in right ankle and joints of right foot (principal); M25.572 Pain in left ankle and joints of left foot

== ENCOUNTER → 2018-11-12 | Outpatient (REF) | payer MEDICARE, OTHER | LOC: M LAB REF 13:02 | PROVIDERS: ATTEND Internal Medicine Nephrology | DX: Z48.22 Encounter for aftercare following kidney transplant (principal); Z51.81 Encounter for therapeutic drug level monitoring ==

== ENCOUNTER 2019-01-12 14:36 | Emergency (ER) | payer MEDICARE, OTHER ==
[~2019-01-12] VITALS: Ht 165.1 cm; Wt 81.8 kg
[2019-01-12 16:11] LABS: BASO % 0.4 % (0.0-1.0); EOS % 0.3 % (0.0-3.0); HEMATOCRIT 32.2 % (36.0-47.0); HEMOGLOBIN 10.4 g/dl (12.0-15.5); LYMPH # 1.1 10^3/uL (1.5-4.5); LYMPH % 10.4 % (24.0-44.0); MEAN CORPUSCULAR HEMOGLOBIN 27.6 pg (27.0-33.0); MEAN CORPUSCULAR HGB CONC 32.3 g/dl (32.0-36.5); MEAN CORPUSCULAR VOLUME 85.4 fl (80.0-96.0); MONO # 0.4 10^3/uL (0.0-0.8); NEUTROPHILS # 8.7 10^3/uL (1.8-7.7); NEUTROPHILS % 84.3 % (36.0-66.0); PLATELET COUNT, AUTOMATED 282 10^3/uL (150-450); RED BLOOD COUNT 3.77 10^6/uL (4.00-5.40); WHITE BLOOD COUNT 10.3 10^3/uL (4.0-10.0)
[2019-01-12 16:37] LABS: NT-PRO BNP 378 PG/ML (<125)
[2019-01-12 17:57] LABS: ALBUMIN 3.6 GM/DL (3.2-5.2); ALT/SGPT 14 U/L (12-78); BILIRUBIN,DIRECT < 0.1 MG/DL (0.0-0.2); BILIRUBIN,TOTAL 0.2 MG/DL (0.2-1.0); BLOOD UREA NITROGEN 23 MG/DL (7-18); CALCIUM LEVEL 9.2 MG/DL (8.5-10.1); CARBON DIOXIDE LEVEL 25 MEQ/L (21-32); CHLORIDE LEVEL 109 MEQ/L (98-107); CREATININE FOR GFR 1.98 MG/DL (0.55-1.30); GLUCOSE, FASTING 145 MG/DL (70-100); LIPASE 140 U/L (73-393); MAGNESIUM LEVEL 1.6 MG/DL (1.8-2.4); PHOSPHORUS LEVEL 2.4 MG/DL (2.5-4.9); POTASSIUM SERUM 4.2 MEQ/L (3.5-5.1); SODIUM LEVEL 140 MEQ/L (136-145); TOTAL PROTEIN 6.7 GM/DL (6.4-8.2)
[2019-01-12] MEDS ORDERED: MAGNESIUM OXIDE 400 MG TAB (MAG-OX) PO ONE (19:00)
[2019-01-12] MEDS ORDERED: NEUTRA-PHOS 1.5 GM PACKET PO ONE (19:00)
[2019-01-12 19:10] VITALS: BP 134/86
== END 2019-01-12 19:21 | disposition home or self-care (01) ==
LOC: M ED 14:36
DX: E83.42 Hypomagnesemia (principal); R61 Generalized hyperhidrosis; Z79.899 Other long term (current) drug therapy; Z88.0 Allergy status to penicillin; Z88.8 Allergy status to other drugs, medicaments and biological substances

== ENCOUNTER → 2019-03-20 | Outpatient (REF) | payer MEDICARE, OTHER ==
[2019-03-20 15:23] LABS: CHOLESTEROL RISK RATIO 4.692 (<5); PERCENT SATURATION 14.5 % (13.2-45.0)
== END ==
LOC: M LAB REF 13:44
PROVIDERS: ATTEND Internal Medicine Nephrology
DX: Z48.22 Encounter for aftercare following kidney transplant (principal); Z94.0 Kidney transplant status; Z51.81 Encounter for therapeutic drug level monitoring; D63.1 Anemia in chronic kidney disease

== ENCOUNTER → 2019-04-22 | Outpatient (CLI) | payer MEDICARE, OTHER ==
--- NOTE | 2019-04-22 13:51 | REP ---
Two-view chest: 04/22/2019. Indication: Cough. Comparison: 01/19/2019. Findings: There is no air space consolidation, pleural effusion or pneumothorax. The cardiomediastinal silhouette is unremarkable. Impression: No acute cardiopulmonary process. Electronically Signed by Won Mccullough DO 04/22/2019 01:44 P
== END ==
LOC: M LRY 13:23
PROVIDERS: ATTEND Nurse Practitioner Family
DX: R05 Cough (principal)
CPT/HCPCS: 71046; G0463

== ENCOUNTER → 2019-04-30 | Outpatient (REF) | payer MEDICARE, OTHER | LOC: M LAB REF 13:17 | PROVIDERS: ATTEND Internal Medicine Nephrology | DX: Z48.22 Encounter for aftercare following kidney transplant (principal); Z51.81 Encounter for therapeutic drug level monitoring ==

== ENCOUNTER → 2019-06-20 | Outpatient (REF) | payer MEDICARE, OTHER | LOC: M LAB REF 13:00 | PROVIDERS: ATTEND Internal Medicine Nephrology | DX: Z48.22 Encounter for aftercare following kidney transplant (principal); Z51.81 Encounter for therapeutic drug level monitoring ==

== ENCOUNTER → 2019-09-19 | Outpatient (REF) | payer MEDICARE, OTHER | LOC: M LAB REF 16:41 | PROVIDERS: ATTEND Nurse Practitioner Family | DX: Z94.0 Kidney transplant status (principal) ==

== ENCOUNTER → 2019-12-20 | Outpatient (REF) | payer MEDICARE, OTHER ==
[2020-02-03 22:30] LABS: ALBUMIN 3.7 GM/DL (3.2-5.2); BILIRUBIN,DIRECT 0.2 MG/DL (0.0-0.2); BILIRUBIN,TOTAL 0.3 MG/DL (0.2-1.0); TOTAL PROTEIN 7.2 GM/DL (6.4-8.2)
== END ==
LOC: M LAB REF 08:16
PROVIDERS: ATTEND Nurse Practitioner Family
DX: Z94.0 Kidney transplant status (principal)

== ENCOUNTER → 2020-03-24 | Outpatient (REF) | payer MEDICARE, OTHER | LOC: M LAB REF 16:55 | PROVIDERS: ATTEND Nurse Practitioner Family | DX: Z94.0 Kidney transplant status (principal) ==

== ENCOUNTER → 2020-06-29 | Outpatient (REF) | payer MEDICARE, OTHER | LOC: M LAB REF 17:50 | PROVIDERS: ATTEND Nurse Practitioner Family | DX: Z94.0 Kidney transplant status (principal) ==

== ENCOUNTER → 2020-07-08 | Outpatient (REF) | payer MEDICARE, OTHER | LOC: M LAB REF 17:32 | PROVIDERS: ATTEND Internal Medicine Nephrology | DX: Z94.0 Kidney transplant status (principal); Z48.22 Encounter for aftercare following kidney transplant; N18.32 Chronic kidney disease, stage 3b ==

== ENCOUNTER 2020-08-15 11:08 | Day surgery (SDC) | payer MEDICARE, OTHER ==
[~2020-08-15] VITALS: Ht 165.1 cm; Wt 78.2 kg
[2020-08-15] MEDS ORDERED: KETOROLAC 30 MG/ML 1ML VIAL IV ONE (12:10)
[2020-08-15] MEDS ORDERED: ONDANSETRON 4MG/2ML VIAL IV ONE (12:10)
[2020-08-15 12:12] LABS: BASO % 0.2 % (0.0-1.0); EOS # 0.1 10^3/uL (0.0-0.5); EOS % 0.4 % (0.0-3.0); HEMATOCRIT 35.6 % (36.0-47.0); HEMOGLOBIN 11.3 g/dl (12.0-15.5); LYMPH # 0.7 10^3/uL (1.5-5.0); LYMPH % 4.9 % (24.0-44.0); MEAN CORPUSCULAR HEMOGLOBIN 27.6 pg (27.0-33.0); MEAN CORPUSCULAR HGB CONC 31.7 g/dl (32.0-36.5); MEAN CORPUSCULAR VOLUME 86.8 fl (80.0-96.0); MONO # 0.9 10^3/uL (0.0-0.8); MONO % 6.1 % (2.0-8.0); NEUTROPHILS # 13.1 10^3/uL (1.5-8.5); NEUTROPHILS % 87.8 % (36.0-66.0); PLATELET COUNT, AUTOMATED 251 10^3/uL (150-450)
[2020-08-15 12:40] LABS: HCG, SERUM QUALITATIVE NEGATIVE (NEGATIVE)
[2020-08-15 12:42] LABS: ALT/SGPT 17 U/L (12-78); BILIRUBIN,TOTAL 0.4 MG/DL (0.2-1.0); BLOOD UREA NITROGEN 24 MG/DL (7-18); CALCIUM LEVEL 9.7 MG/DL (8.5-10.1); CARBON DIOXIDE LEVEL 28 MEQ/L (21-32); CHLORIDE LEVEL 106 MEQ/L (98-107); CREATININE FOR GFR 1.96 MG/DL (0.55-1.30); GLOMERULAR FILTRATION RATE 30.2 (>60); GLUCOSE, FASTING 124 MG/DL (70-100); POTASSIUM SERUM 4.5 MEQ/L (3.5-5.1); SODIUM LEVEL 140 MEQ/L (136-145)
[2020-08-15 12:43] LABS: ALBUMIN 3.8 GM/DL (3.2-5.2); AMYLASE 49 U/L (25-115); BILIRUBIN,DIRECT 0.1 MG/DL (0.0-0.2); LIPASE 96 U/L (73-393)
--- NOTE | 2020-08-15 13:51 | REP ---
INDICATION: ruq finley r/o calc. COMPARISON: Abdomen/pelvis CT dated 01/14/2018. TECHNIQUE: Abdomen/pelvis CT without IV or bowel contrast. FINDINGS: The appendix lies anterior to the transplanted kidney in the pelvis. The appendix wall is circumferentially thickened and there is mesenteric stranding surrounding the appendix as interval changes compatible with acute appendicitis. There is no focal fluid collection to suggest perforation or abscess. There are tiny appendicoliths, unchanged. The visualized lung [place] are unremarkable. The unenhanced hepatic parenchyma, gallbladder, pancreas and spleen are unremarkable. The adrenals are unremarkable. The [place] kidneys are markedly atrophic. This is unchanged. The abdominal aorta is unremarkable. There is no bowel distention or obstruction. Pelvis: Appendix as discussed. There has been an interim hysterectomy. The vaginal cuff and adnexa are unremarkable. The bladder is unremarkable. There is no pelvic adenopathy or free fluid. IMPRESSION: Acute appendicitis as described without appendiceal rupture or abscess. <Electronically signed by Abdiel Anderson > 08/15/20 [id number]
[2020-08-15] MEDS ORDERED: ERTAPENEM SODIUM 1 GM in NS MINI-BAG PLUS 50 ML IV ONE (14:00)
[2020-08-15] MEDS ORDERED: ONDANSETRON 4MG/2ML VIAL IV PRN ×2 (14:25→19:15)
[2020-08-15] MEDS ORDERED: ASCO1TAB3 PO (14:32)
[2020-08-15] MEDS ORDERED: HYDR-3713 PO (14:42)
[2020-08-15] MEDS ORDERED: PRED5TA PO (14:42)
[2020-08-15] MEDS ORDERED: MYFO360T PO (14:42)
[2020-08-15] MEDS ORDERED: LR 1,000 ML IV SCH ×2 (15:00→19:15)
[2020-08-15 15:41] LABS: INR 0.99; PROTHROMBIN TIME 13.3 SECONDS (12.5-14.3)
[2020-08-15 17:01] LABS: RSV AMPLIFICATION NEGATIVE (NEGATIVE)
--- NOTE | 2020-08-15 17:23 | HPEPDOC ---
General Surgery H&P Date of Admission Aug 15, 2020 Attending Physician: RAMON PERRY MD History and Physical CHIEF COMPLAINT: abdominal pain HISTORY OF PRESENT ILLNESS: Patient is a 39-year-old female who has a kidney transplant who presented to the emergency room with about 1 day history of right side, right flank pain. She reports the pain is voiding overnight was worse this morning. She threw up once or twice. [place] nauseated. Denies any fevers or chills or sick contacts. Pain persisted and she went to the emergency room. She was worked up and found to have evidence for acute appendicitis. ALLERGIES: Please see below. HOME MEDICATIONS: Please see below. PAST MEDICAL AND SURGICAL HISTORY: 1. 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 2. Status post kidney transplant. 3. Stage III of chronic kidney disease. 4. History of hypertension. 5. History of anemia. Past surgical history significant for (C) section in 2000, cleft palate and tympanoplasty in childhood, arteriovenous (AV) fistula creation in 2002 and a kidney transplant in right lower quadrant 2008, laparoscopic hysterectomy and right oophorectomy PERSONAL AND SOCIAL HISTORY: Patient is . Lives with her family. She does not smoke and does not drink alcohol or use any recreational drugs. REVIEW OF SYSTEMS: She denies any fever or chills. Ears, nose and throat are unremarkable. Cardiovascular system is negative for dyspnea or chest pain. Respiratory system is negative for cough or hemoptysis. Gastrointestinal (GI) system is negative for vomiting or diarrhea. She reports generalized abdominal pain. Genitourinary () system is negative for dysuria or hematuria. Endocrine system is negative for diabetes or thyroid problems. Hematological system is significant for anemia of chronic kidney disease. Skin is negative for rash or ulcers. Neurological system negative for seizures or stroke. PHYSICAL EXAMINATION: VITAL SIGNS: Please see below. GENERAL APPEARANCE: mildly uncomfortable with movement otherwise not in any distress. Awake, alert, oriented. HEENT: Normocephalic, atraumatic. [place] palpebral conjunctivae. Anicteric sclerae. CHEST: No chest wall abnormalities. Normal respiratory motion/effort. NECK: Supple. No thyromegaly. No lymphadenopathies. LUNGS: Lung sounds are clear to auscultation bilaterally. No wheezing appreciated. HEART: No chest wall abnormalities. Heart rate and rhythm are regular with no murmurs. ABDOMEN: Abdomen is obese, soft, slightly rounded, Nondistended. Multiple laparoscopic port sites from her previous surgeries. No incisional hernias. No umbilical or groin hernias. Moderately tender to palpation over right lower quadrant, minimal guarding. Nontender in the left side SKIN: Warm, moist. EXTREMITIES: Extremities have no deformities. No edema identified. NEUROLOGICAL: Awake, alert and oriented ANCILLARIES: . LABORATORY DATA: Please see below. MICROBIOLOGY: Please see below. IMAGING: CT abdomen and pelvis consistent with acute appendicitis IMPRESSION AND PLAN: Acute appendicitis with localized peritonitis Patient symptoms, clinical examination as well as supporting studies including imaging consistent with acute appendicitis. No evidence of perforation or abscess. She is may comprise given her status post kidney transplant on antir ejection medications. She has been given a dose of Invanz from the emergency room. We will take her to the OR performed laparoscopic appendectomy. I discussed with her the risks of the surgery, expected benefits as well as expected postoperative course. Given immunocompromise state most likely will need home antibiotics. Consent has been obtained from the patient. Vital Signs Vital Signs Date Time Temp Pulse Resp B/P (MAP) Pulse Ox O2 Delivery O2 Flow Rate FiO2 08/15/20 16:59 98.6 92 16 108/67 (81) 99 Room Air Laboratory Data Labs 24H Laboratory Tests 2 08/15/20 12:01: Immature Granulocyte % (Auto) 0.6, Neutrophils (%) (Auto) 87.8H, Lymphocytes (%) (Auto) 4.9L, Monocytes (%) (Auto) 6.1, Eosinophils (%) (Auto) 0.4, Basophils (%) (Auto) 0.2, Neutrophils # (Auto) 13.1H, Lymphocytes # (Auto) 0.7L, Monocytes # (Auto) 0.9H, Eosinophils # (Auto) 0.1, Basophils # (Auto) 0.0, Nucleated Red Blood Cells % (auto) 0.0, Anion Gap 6L, Glomerular Filtration Rate 30.2L, Calcium Level 9.7, Total Bilirubin 0.4, Direct Bilirubin 0.1, Aspartate Amino Transf (AST/SGOT) 8, Alanine Aminotransferase (ALT/SGPT) 17, Alkaline Phosphatase 74, Total Protein 7.0, Albumin 3.8, Albumin/Globulin Ratio 1.2, Am ylase Level 49, Lipase 96, Human Chorionic Gonadotropin, Qual NEGATIVE 08/15/20 12:06: Urine Color YELLOW, Urine Appearance HAZY, Urine pH 5.0, Urine Specific [place] 1.017, Urine Protein NEGATIVE, Urine Glucose (UA) NEGATIVE, Urine Ketones NEGATIVE, Urine Blood 1+H, Urine Nitrite NEGATIVE, Urine Bilirubin NEGATIVE, Urine Urobilinogen 0.2, Urine Leukocyte Esterase NEGATIVE, Urine WBC (Auto) 0, Urine RBC (Auto) 1, Urine Hyaline Casts (Auto) 0, Urine Bacteria (Auto) NEGATIVE, Urine Squamous Epithelial Cells 8, Urine Mucus (Auto) SMALL, Urine Sperm (Auto) 08/15/20 14:59: Prothrombin Time 13.3, Prothromb Time International Ratio 0.99 08/15/20 16:12: Coronavirus (COVID-19)(PCR) NEGATIVE, Influenza Type A (RT-PCR) NEGATIVE, Influenza Type B (RT-PCR) NEGATIVE, Respiratory Syncytial Virus (PCR) NEGATIVE CBC/BMP Laboratory Tests 08/15/20 12:01 Home Medications Scheduled Ascorbic Acid/Elderberry Fruit (Elderberry-Vit C 50-100 mg [facility]) 100 Mg-50 Mg Tab.chew, 1 TAB PO DAILY, (Reported) Mycophenolate Sodium (Myfortic) 360 Mg Tablet.dr, 360 MG PO BID, (Reported) Prednisone (Prednisone) 5 Mg Tablet, 5 MG PO DAILY, (Reported) Tacrolimus (Tacrolimus) 1 Mg Cap, 1 MG PO BID, (Reported) Scheduled PRN Hydrocodone/Acetaminophen (Hydrocodone-Acetamin 5-325 mg) 1 Each Tablet, 1 TAB PO Q6H PRN for PAIN, (Reported) Allergies Coded Allergies: amoxicillin (Verified Allergy, Unknown, rash, 01/12/19) iodine (Verified Allergy, Unknown, rash, 01/12/19) A-FIB/CHADSVASC A-FIB History Current/History of A-Fib/PAF?: No Current PO Anticoag Therapy: No RAMON PERRY MD Aug 15, 2020 17:23
[2020-08-15] MEDS ORDERED: LIDOCAINE 1% SDV 30ML VIAL As Ordered ONE (17:42)
[2020-08-15] MEDS ORDERED: BUPIVACAINE HCL 0.25% 30ML VIAL As Ordered ONE (17:42)
[2020-08-15] MEDS ORDERED: ONDANSETRON 4MG/2ML VIAL As Ordered ONE (17:49)
[2020-08-15] MEDS ORDERED: propofoL 200 MG/20 ML VIAL As Ordered ONE (17:49)
[2020-08-15] MEDS ORDERED: fentaNYL 100 MCG/2 ML INJECTION (J3010) As Ordered ONE ×2 (17:49→17:58)
[2020-08-15] MEDS ORDERED: ROCURONIUM BROMIDE 50 MG/5 ML VIAL As Ordered ONE (17:49)
[2020-08-15] MEDS ORDERED: MIDAZOLAM INJ 2MG/2ML VIAL (J2250 PER 1MG) As Ordered ONE (17:49)
[2020-08-15] MEDS ORDERED: LIDOCAINE 2% 100MG/5ML SDV (FOR ANES.) As Ordered ONE (17:49)
[2020-08-15] MEDS ORDERED: dexameTHASONE 4 MG/ML 1ML VIAL (J1100 PER 1MG) As Ordered ONE (17:49)
[2020-08-15] MEDS ORDERED: ePHEDrine SULFATE 25 MG/5 ML(5MG/ML) SYRINGE As Ordered ONE (17:59)
[2020-08-15] MEDS ORDERED: SUGAMMADEX SODIUM 500 MG/5 ML VIAL (BRIDION) As Ordered ONE (18:03)
[2020-08-15] MEDS ORDERED: ACETAMINOPHEN 1000MG 100ML IV BTL (OFIRMEV) (J0131 PER 10MG) As Ordered ONE (18:14)
[2020-08-15] MEDS ORDERED: MORPHINE 4 MG/ML 1ML VIAL/SYRINGE (J2270) IV PRN (19:00)
[2020-08-15] MEDS ORDERED: PERCOCET 5MG/325MG TAB PO PRN (19:15)
[2020-08-15] MEDS ORDERED: HYDROMORPHONE HCL 0.5 MG/ 0.5 ML SYRINGE (J1170 PER 1) IV PRN (19:15)
[2020-08-15] MEDS ORDERED: fentaNYL 100 MCG/2 ML INJECTION (J3010) IV PRN (19:15)
[2020-08-15] MEDS ORDERED: METOCLOPRAMIDE INJ 10MG/2ML VIAL (J2765 PER 1) IV PRN (19:15)
[2020-08-15 19:45] VITALS: BP 107/70
[2020-08-15 20:20] VITALS: BP 104/70
[2020-08-15] MEDS: NORCO, ANEXSIA 5/325MG TABLET (HYDROcodone/ACETAMINOPHEN) PO PRN (20:27)
[2020-08-15 20:50] VITALS: BP 103/70
[2020-08-15] MEDS: MYCOPHENOLIC ACID 360 MG PO SCH (21:00)
[2020-08-15 21:50] VITALS: BP 105/72
[2020-08-15] MEDS: TACROLIMUS 1 MG CAP (J7507) PO SCH (22:01)
[2020-08-15 22:50] VITALS: BP 103/64
[2020-08-15 23:50] VITALS: BP 101/64
[2020-08-16 00:50] VITALS: BP 102/65
[2020-08-16 05:00] VITALS: BP 101/65
[2020-08-16 06:27] LABS: BASO % 0.1 % (0.0-1.0); HEMATOCRIT 31.4 % (36.0-47.0); HEMOGLOBIN 9.9 g/dl (12.0-15.5); LYMPH # 0.5 10^3/uL (1.5-5.0); LYMPH % 3.6 % (24.0-44.0); MEAN CORPUSCULAR HEMOGLOBIN 27.7 pg (27.0-33.0); MEAN CORPUSCULAR HGB CONC 31.5 g/dl (32.0-36.5); MEAN CORPUSCULAR VOLUME 87.7 fl (80.0-96.0); MONO # 0.4 10^3/uL (0.0-0.8); MONO % 2.7 % (2.0-8.0); NEUTROPHILS # 13.6 10^3/uL (1.5-8.5); NEUTROPHILS % 93.1 % (36.0-66.0); PLATELET COUNT, AUTOMATED 272 10^3/uL (150-450); RED BLOOD COUNT 3.58 10^6/uL (4.00-5.40); WHITE BLOOD COUNT 14.6 10^3/uL (4.0-10.0)
[2020-08-16 06:45] LABS: CREATININE FOR GFR 2.53 MG/DL (0.55-1.30); GLOMERULAR FILTRATION RATE 22.5 (>60); POTASSIUM SERUM 5.4 MEQ/L (3.5-5.1)
[2020-08-16] MEDS: TACROLIMUS 1 MG CAP (J7507) PO SCH (08:00)
[2020-08-16] MEDS: MYCOPHENOLIC ACID 360 MG PO SCH (08:01)
[2020-08-16] MEDS ORDERED: predniSONE 5 MG TAB PO SCH (09:00)
[2020-08-16 10:00] VITALS: BP 128/80
--- NOTE | 2020-08-16 10:44 | ROOPDOC ---
[facility] Report Of Operation Report of Operation DATE OF PROCEDURE: 08/15/20 PREPROCEDURE DIAGNOSES: Acute appendicitis. POSTPROCEDURE DIAGNOSES: Acute appendicitis, retrocecal appendix. PROCEDURE: Laparoscopic appendectomy. SURGEON: Cuong Carver MD KILN BURNER: ANESTHESIA: Gen. anesthesia. ESTIMATED BLOOD LOSS: Approximately 300 mL. COMPLICATIONS: Bleeding from appendicular artery with delayed control. REMARKS: Patient is a 39-year-old female with 1 day history of right lower quadrant, right flank pain. She has a right side kidney transplant. She was found to have evidence for acute appendicitis. She is brought to the OR for laparoscopic appendectomy. PROCEDURE NOTE: The appendix is noted to take a retrocecal course and was located in between the [place] created by the lateral border of the transplanted kidney and the lateral wall of the cecum. Thickened throughout its course. No obvious evidence for perforation, abscess. She is a bunch of brownish spots consistent with endometriosis in her pelvis. She already had a hysterectomy and right ovarian nephrectomy.. DESCRIPTION OF PROCEDURE: . Patient has been given a dose of Ertapenem 1 gm IV perioperatively.Patient was brought to the operating room, placed supine on the table. Sequential compression device placed for DVT prophylaxis. General endotracheal anesthesia started. The abdomen prepped and draped in usual sterile fashion. We paused for a surgical timeout using both pre-incision safety checklist to verify correct patient, procedure site and additional clinical information prior to beginning the procedure Entry into the abdomen done through an incision at the LUQ. Patient has a RLQ kidney transplant. Veress needle inserted on a controlled fashion. Intra-abdomin al placement confirmed with saline drop technique. CO2 insufflation started to a pressure of 15 mmHg. Using the same incision a 5 mm port was placed under direct vision of laparoscope. Insertion site was inspected for injury and none was found. He was placed on a Trendelenburg position the right side tilted to allow for better visualization of the appendix. I placed a 8 mm periumbilical port and a 5 mm left lower quadrant port. Operative findings: Patient has a right lower quadrant intraperitoneal transpl anted kidney. The appendix was not readily visualized. The cecum started in between the kidney and the abdominal wall. There was no evidence of any free perforation, abscess. The terminal ileum just near the insertion of the appendix. The cecum was rolled medially to locate the course of the appendix. This is taking a slight retrocecal course. The mesial appendix is noted to be thickened. The appendix looks thick and specifically at the base. I first tried working to free up the retrocecal appendix from its fibrous attachments to the lateral side of the cecum. Once have adequate visualization of about the mid appendix, tried dividing the mesoappendix with the Harmonic scalpel. As I went through the thickened mesoappendix. The appendicular artery broke off with some bleeding. This was controlled initially temporarily with the graspers. Control was made difficult by somewhat inadequate visualization as this is located between the transplant kidney in the posterior wall of the cecum. I placed another 5 mm port over the right upper quadrant area and moved the camera over this to visualize the appendicular artery. With using it reports as retraction for the cecum likely control the appendicular artery with ligament max 10 mm clips. Then proceeded dividing the mesoappendix down to the base. Two PDS Endoloops were placed to ligate the appendix at its base then divided with a Harmonic Scalpel the stump cauterized. Stump appears healthy. Appendix was then delivered into an Endo Catch bag through the 8 mm umbilical port site. . After re-insufflation the surgical site was inspected for hemostasis. I observed the area where the mesoappendix was divided and appendicular artery clipped to make sure there is adequate hemostasis. Surrounding areas of the abdomen and inspected for fluid collections or signs of injury. The abdomen was deflated. All ports removed. The umbilical fascial defect repaired with 0 Vicryl in a mattress fashion. All skin incisions closed with 4-0 Monocryl in a subcuticular fashion. Steri-Strips and gauze dressing used for wound coverage. Patient was promptly awake and extubated and brought to recovery room stable. All counts of sponges and instruments verified to be correct. CUONG CARVER MD Aug 16, 2020 10:44
[2020-08-16] MEDS ORDERED: LEVO500T3 PO (10:48)
--- NOTE | 2020-08-16 10:52 | IPNPDOC ---
Text Note Date of Service The patient was seen on 08/16/20. NOTE Patient reports doing a lot better today, denies any severe abdominal pain. She is tolerating regular food. She denies any nausea or vomiting. She reports clear urine. Vital signs stable, afebrile Examination She was seen sitting up on her bed, looks very comfortable Lung sounds are clear to auscultation Non-tachycardic, regular rhythm Abdomen is obese, soft, nondistended. She has 4 ports sites covered with gauze and Tegaderm. Not much staining. Some mild ecchymosis surrounding the umbilical port site. No active bleeding. Minimally tender around port sites, nontender in the right lower quadrant Impression and plan Acute appendicitis with localized peritonitis No evidence of perforation, fluid collection or abscess intraoperatively. I discussed with her the intraoperative findings likewise the breaking off of the appendicular artery with delayed control due to the artery retracting. She seems to be still dehydrated. There is a slight elevation of her kidney function. I discussed with her ureters staying in the hospital for another day for continued IV fluid hydration and monitoring of her kidney numbers but patient would like to go home as it as a stirrup. I'll give her a bolus of 500 mL of NS. Given her immunocompromised state, I will send her home on a seven-day course of Levaquin. I will have her repeat a BMP on Monday. VS,Fishbone, I+O VS, Fishbone, I+O Laboratory Tests 08/15/20 12:01 08/16/20 05:32 Vital Signs Date Time Temp Pulse Resp B/P (MAP) Pulse Ox O2 Delivery O2 Flow Rate FiO2 08/16/20 10:00 97.8 104 19 128/80 (96) 95 Room Air 08/15/20 19:00 2 I&O- Last 24 Hours up to 6 AM 08/16/20 06:00 Intake Total 3615 ml Output Total 500 ml Balance 3115 ml RAMON PERRY MD Aug 16, 2020 10:52
[2020-08-16] MEDS ORDERED: SODIUM CHLORIDE 0.9% 1000ML IV ONE (11:00)
[2020-08-16] MEDS: NORCO, ANEXSIA 5/325MG TABLET (HYDROcodone/ACETAMINOPHEN) PO PRN (11:56)
[2020-08-16] MEDS ORDERED: ERTAPENEM SODIUM 1 GM in NS MINI-BAG PLUS 50 ML IV SCH (14:00)
== END 2020-08-16 12:39 | disposition home or self-care (01) ==
LOC: M ED 11:08 → M SDC 11:09 → M MSPAV 19:30 → M SDC 08-16 12:39
PROVIDERS: ATTEND Surgery
DX: K35.30 Acute appendicitis with localized peritonitis, without perforation or gangrene (principal); K91.71 Accidental puncture and laceration of a digestive system organ or structure during a digestive system procedure; Z94.0 Kidney transplant status; Z86.79 Personal history of other diseases of the circulatory system; Z86.39 Personal history of other endocrine, nutritional and metabolic disease; N18.30 Chronic kidney disease, stage 3 unspecified; Z79.899 Other long term (current) drug therapy; Z79.52 Long term (current) use of systemic steroids; Z88.0 Allergy status to penicillin; Z88.8 Allergy status to other drugs, medicaments and biological substances
CPT/HCPCS: 36415; 44970; 74176; 80048; 80076; 81001; 82150; 83690; 84703; 85025; 85610; 87631; 88304; 93041; 96365; 96375; 99285; G0378; J0131; J1100; J1335; J1885; J2250; J2270; J2405; J3010; J7507; S2900

== ENCOUNTER → 2020-08-18 | Outpatient (CLI) | payer MEDICARE, OTHER ==
[~2020-08-18] MED LIST changes: +ASCO1TAB3 PO; +HYDR-3713 PO; +LEVO500T3 PO
[2020-08-18 10:57] LABS: CREATININE FOR GFR 1.86 MG/DL (0.55-1.30); GLOMERULAR FILTRATION RATE 32.1 (>60); POTASSIUM SERUM 3.8 MEQ/L (3.5-5.1)
== END ==
LOC: M LAB 09:45
PROVIDERS: ATTEND Surgery
DX: K35.32 Acute appendicitis with perforation, localized peritonitis, and gangrene, without abscess (principal)

== ENCOUNTER 2020-11-29 22:01 | Inpatient (IN) | payer MEDICARE, OTHER ==
[~2020-11-29] VITALS: Ht 165.1 cm; Wt 85.3 kg
[2020-11-29 22:43] LABS: URINE PREG TEST NEGATIVE (NEGATIVE)
[2020-11-30] MEDS ORDERED: ACETAMINOPHEN TAB 650MG DOSE (2X325MG) PO ONE (02:40)
[2020-11-30 02:47] LABS: HEMATOCRIT 33.9 % (36.0-47.0); HEMOGLOBIN 10.9 g/dl (12.0-15.5); MEAN CORPUSCULAR HEMOGLOBIN 27.5 pg (27.0-33.0); MEAN CORPUSCULAR HGB CONC 32.2 g/dl (32.0-36.5); MEAN CORPUSCULAR VOLUME 85.4 fl (80.0-96.0); PLATELET COUNT, AUTOMATED 252 10^3/uL (150-450); RED BLOOD COUNT 3.97 10^6/uL (4.00-5.40); WHITE BLOOD COUNT 20.2 10^3/uL (4.0-10.0)
[2020-11-30 03:13] LABS: CALCIUM LEVEL 7.9 MG/DL (8.5-10.1); CREATININE FOR GFR 3.39 MG/DL (0.55-1.30); GLOMERULAR FILTRATION RATE 16.1 (>60); POTASSIUM SERUM 4.3 MEQ/L (3.5-5.1)
[2020-11-30] MEDS ORDERED: NS 2,490 ML in IV 1 EA IV ONE (05:00)
[2020-11-30] MEDS ORDERED: MEROPENEM INJ 500 MG in IV 1 EA IV ONE (05:05)
[2020-11-30] MEDS ORDERED: D31000TA2 PO (06:09)
--- NOTE | 2020-11-30 06:45 | REPVR ---
PROCEDURE INFORMATION: Exam: CT Abdomen And Pelvis Without Contrast Exam date and time: 11/30/2020 5:06 AM Age: 39 years old Clinical indication: Other: UTI, raz, abd pain, R/O stone TECHNIQUE: Imaging protocol: Computed tomography of the abdomen and pelvis without contrast. Radiation optimization: All CT scans at this facility use at least one of these dose optimization techniques: automated exposure control; mA and/or kV adjustment per patient size (includes targeted exams where dose is matched to clinical indication); or iterative reconstruction. COMPARISON: CT ABD PELVIS W/O CONTRAST 08/15/2020 1:05 PM FINDINGS: Detailed evaluation of the abdominal and pelvic viscera is somewhat limited in the absence of intravenous contrast. Lungs: Interstitial prominence and mild airspace disease. Liver: Fatty infiltration of the liver. Stable cysts contiguous with the capsular surface of the right hepatic lobe. Gallbladder and bile ducts: No cholelithiasis or biliary ductal dilatation. Pancreas: No pancreatic mass or ductal dilatation. Spleen: Enlarged spleen measuring 13.2 cm in length. Adrenal glands: Unremarkable adrenals. Kidneys and ureters: Severe atrophy of the [place] kidneys, consistent with chronic renal failure, along with 1 mm calcifications. Renal transplant in the right iliac fossa with infiltration of perinephric fat. Stomach and bowel: No significant small bowel dilatation. Diverticula, without pericolonic inflammation. Appendix: Nonvisualization of the appendix. Intraperitoneal space: No significant free fluid. Vasculature: No abdominal aortic aneurysm. Lymph nodes: Subcentimeter lymph nodes. Urinary bladder: Bladder wall thickening with mild infiltration of perivesicular fat. Reproductive: 5.0 x 4.5 x 5.2 cm ovoid structure with central hypodensity in the left adnexa, presumably representing an enlarged left ovary. Ultrasound correlation is recommended for improved characterization. Bones/joints: Degenerative change and lumbar facet arthropathy. Soft tissues: Unremarkable. IMPRESSION: 1. Bladder wall thickening with mild infiltration of perivesicular fat. 2. 5.0 x 4.5 x 5.2 cm ovoid structure with central hypodensity in the left adnexa, presumably representing an enlarged left ovary. Ultrasound correlation is recommended. 3. Renal transplant in the right iliac fossa with infiltration of perinephric fat. 4. Additional findings as described above. Electronically signed by: Wilder Gutierrez On 11/30/2020 06:44:51 AM
[2020-11-30 07:04] LABS: RSV AMPLIFICATION NEGATIVE (NEGATIVE)
[2020-11-30] MEDS ORDERED: ACETAMINOPHEN 325 MG TAB PO ONE (07:45)
[2020-11-30] MEDS ORDERED: NS 1,000 ML IV SCH (07:55)
[2020-11-30] MEDS ORDERED: SODIUM CHLORIDE 0.9% 1000ML IV STA (08:08)
[2020-11-30] MEDS ORDERED: ONDANSETRON 4MG/2ML VIAL IV PRN (08:10)
[2020-11-30] MEDS ORDERED: MEROPENEM INJ 1 GM in IV 1 EA IV SCH (08:15)
--- NOTE | 2020-11-30 08:27 | HPEPDOC ---
General Date of Admission 11/30/20 Date of Service: Nov 30, 2020 Chief Complaint The patient is a 39-year-old female admitted with a reason for visit of Not Feeling Well. Source: Patient History of Present Illness Patient is 39 years old female with past medical history of end-stage renal disease secondary to FSGS, status post renal transplant 4 years ago presented to the hospital with fever, chills and right flank pain. Patient stated that she started feeling flank pain since Monday, she developed dysuria associated with rigors and fever. Patient stated that her fever was up to 103 Fahrenheit. Also she reported nausea. In ER patient was found to blood pressure of 88/55, tachycardia with heart rate around 110, white blood count of 20.2, creatinine 3.3. UA shows pyuria. CT scan showed Bladder wall thickening with mild infiltration of perivesicular fat. 5.0 x 4.5 x 5.2 cm ovoid structure with central hypodensity in the left adnexa, presumably representing an enlarged left ovary. Ultrasound correlation is recommended. Renal transplant in the right iliac fossa with infiltration of perinephric fat. Home Medications Scheduled Ascorbic Acid/Elderberry Fruit (Elderberry-Vit C 50-100 mg Chw) 100 Mg-50 Mg Tab.chew, 1 TAB PO DAILY, (Reported) Cholecalciferol (Vitamin D3) (Vitamin D3) 1,000 Unit Tablet, 1,000 UNITS PO DAILY, (Reported) Mycophenolate Sodium (Myfortic) 360 Mg Tablet.dr, 720 MG PO BID, (Reported) Prednisone (Prednisone) 5 Mg Tablet, 5 MG PO DAILY, (Reported) Tacrolimus (Tacrolimus) 1 Mg Cap, 2 MG PO BID, (Reported) Scheduled PRN Hydrocodone/Acetaminophen (Hydrocodone-Acetamin 5-325 mg) 1 Each Tablet, 1 TAB PO Q6H PRN for PAIN, (Reported) Allergies Coded Allergies: amoxicillin (Verified Allergy, Unknown, rash, 01/12/19) iodine (Verified Allergy, Unknown, rash, 01/12/19) Past Medical History Medical History 1. 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 2. Status post kidney transplant. 3. Stage III of chronic kidney disease. 4. History of hypertension. 5. History of anemia. Surgical History (C) section in 2000, cleft palate and tympanoplasty in childhood, arteriovenous (AV) fistula creation in 2002 and a kidney transplant in right lower quadrant 2009, laparoscopic hysterectomy and ri ght oophorectomy Family History Mom has diabetes Social History * Smoker: Denies Alcohol: Denies Drugs: denies A-FIB/CHADSVASC A-FIB History Current/History of A-Fib/PAF?: No Current PO Anticoag Therapy: No Review of Systems Constitutional: Reports: Chills, Fever, Malaise, Weakness Eyes: Denies: Pain ENT: Denies: Head Aches Skin: Denies: Rash, Lesions Pulmonary: Denies: Dyspnea, Cough Cardiovascular: Denies: Chest Pain Gastrointestinal: Reports: Nausea Genitourinary: Reports: Dysuria, Frequency Hematologic: Denies: Bruising Endocrine: Denies: Polydipsia, Polyphagia Musculoskeletal: Denies: Neck Pain Neurological: Denies: Weakness Psych: Reports: Mood Normal Physical Examination General Exam: Positive: Alert, Cooperative Eye Exam: Positive: PERRLA ENT Exam: Positive: Atraumatic Neck Exam: Positive: Supple; Negative: JVD Chest Exam: Positive: Clear to auscultation Heart Exam: Positive: Tachycardic Abdomen Exam: Positive: Normal bowel sounds, Tenderness (Right flank) Extremity Exam: Negative: Clubbing Skin Exam: Negative: Breakdown Neuro Exam: Positive: Strength at 5/5 X4 ext Psych Exam: Positive: Mental status NL Vital Signs Vital Signs Date Time Temp Pulse Resp B/P (MAP) Pulse Ox O2 Delivery O2 Flow Rate FiO2 11/30/20 07:15 102.0 108 20 106/63 (77) 98 Room Air Laboratory Data Labs 24H Laboratory Tests 2 11/29/20 22:34: Urine Color YELLOW, Urine Appearance [place], Urine pH 5.0, Urine Specific [place] 1.014, Urine Protein 2+H, Urine Glucose (UA) NEGATIVE, Urine Ketones NEGATIVE, Urine Blood 3+H, Urine Nitrite NEGATIVE, Urine Bilirubin NEGATIVE, Urine Urobilinogen 0.2, Urine Leukocyte Esterase 3+H, Urine WBC (Auto) TNTCH, Urine RBC (Auto) 31H, Urine Hyaline Casts (Auto) 0, Urine Bacteria (Auto) 2+H, Urine Squamous Epithelial Cells 4, Urine Transitional Epithelial Cells 1, Urine Mucus (Auto) SMALL, Urine Sperm (Auto) , Urine Test NEGATIVE 11/30/20 02:35: Nucleated Red Blood Cells % (auto) 0.0, Anion Gap 9, Glomerular Filtration Rate 16.1L, Lactic Acid Level 1.9, Calcium Level 7.9L 11/30/20 05:52: Coronavirus (COVID-19)(PCR) NEGATIVE, Influenza Type A (RT-PCR) NEGATIVE, Influenza Type B (RT-PCR) NEGATIVE, Respiratory Syncytial Virus (PCR) NEGATIVE CBC/BMP Laboratory Tests 11/30/20 02:35 Microbiology Microbiology 11/30/20 Blood Culture, Received Pending 11/30/20 Blood Culture, Received Pending 11/29/20 Urine Culture, Received Pending Assessment/Plan Patient is 39 years old female with past medical history of end-stage renal disease secondary to FSGS, status post renal transplant 4 years ago presented to the hospital with fever, chills and right flank pain. Patient stated that she started feeling flank pain since Monday, she developed dysuria associated with rigors and fever. Patient stated that her fever was up to 103 Fahrenheit. Also she reported nausea. In ER patient was found to blood pressure of 88/55, tachycardia with heart rate around 110, white blood count of 20.2, creatinine 3.3. UA shows pyuria. CT scan showed Bladder wall thickening with mild infiltration of perivesicular fat. 5.0 x 4.5 x 5.2 cm ovoid structure with central hypodensity in the left adnexa, presumably representing an enlarged left ovary. Ultrasound correlation is recommended. Renal transplant in the right iliac fossa with infiltration of perinephric fat. Problems (1) Sepsis Status: Acute Problem Text: Patient has fever, tachycardia, hypotension, leukocytosis on admission Most likely secondary to acute pyelonephritis Meropenem IV started IV fluid according to sepsis protocol Blood culture (2) EVE (acute kidney injury) Status: Acute Problem Text: Status post renal transplant Secondary to volume depletion due to severe sepsis IV fluid Appreciate/agree with nephrology's consult Immunosuppressive medications on hold (3) Pyelonephritis Status: Acute Problem Text: See above Plan / VTE VTE Prophylaxis Ordered?: Yes CRISTINA COTTON DO Nov 30, 2020 08:26
[2020-11-30] MEDS ORDERED: HEPARIN SOD (PORCINE) 5000UNITS/ML 1ML VIAL/SYRINGE SC SCH (09:00)
[2020-11-30 10:40] VITALS: BP 100/58
[2020-11-30] MEDS: NS 1,000 ML IV SCH ×2 (11:10→20:10)
[2020-11-30] MEDS ORDERED: HYDROCORTISONE 100 MG/2 ML VIAL (J1720 PER 1) IV ONE (11:15)
[2020-11-30] MEDS: ACETAMINOPHEN TAB 650MG DOSE (2X325MG) PO PRN ×2 (12:15→20:57)
[2020-11-30] MEDS: HEPARIN SOD (PORCINE) 5000UNITS/ML 1ML VIAL/SYRINGE SC SCH ×2 (12:25→20:24)
--- NOTE | 2020-11-30 12:47 | CR ---
NEPHROLOGY CONSULTATION DATE: 11/30/2020 REQUESTING PHYSICIAN: Dr. Devonte Mckeon CONSULTING PHYSICIAN: Dr. Mian Duque REASON FOR CONSULTATION: Management of acute renal failure and renal allograft status. CHIEF COMPLAINT: The patient presented to the Emergency Room last night because of fever, chills and rigors and not feeling well. 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 She presented to the hospital with about 3 day history of fever, chills, rigors, not feeling well and decreased appetite and she also had dysuria. In the Emergency Room the patient was found to be febrile with a T-max of 103 degrees Fahrenheit. She was found to be in acute renal failure with a creatinine of 3.3. The patient reports that her baseline creatinine is around usually 1.6. The patient was found to have very cloudy urine with too numerous to count WBCs. She was admitted under the Hospitalist Service with sepsis secondary to pyelonephritis and acute renal failure. Nephrology Service was called for further help in the management of this patient. I already discussed the case with the E.R. physician today morning when the patient was being admitted. She was started on empiric antibiotic coverage with IV Meropenem and given IV fluid hydration. The patient is allergic to Amoxicillin. I saw and evaluated the patient today morning at the bedside. The patient reports that she is feeling almost the same as last night, however her fever broke down. PAST MEDICAL HISTORY: The patient's past medical history is significant for: 1. End-stage renal disease secondary to FSGS, status post renal transplant about 12 years ago. 2. Baseline chronic kidney disease stage 3 with a creatinine of around 1.6. 3. History of hypertension. SURGICAL HISTORY: The patient's past surgical history is significant for: 1. Status post in 2000. 2. History of cleft palate surgery. 3. Tympanoplasty in childhood. 4. History of AV fistula creation in 2002. 5. History of laparoscopic hysterectomy and right oophorectomy. ALLERGIES: She is allergic to: 1. Iodine. 2. Amoxicillin. FAMILY HISTORY: Mother has diabetes. SOCIAL HISTORY: She denies any smoking, illicit drug abuse or alcohol abuse. REVIEW OF SYSTEMS: Constitutional: The patient reported fevers, chills and rigors on arrival. Eyes: She denies any blurry vision, double vision. ENT: She denies any dysphagia or odynophagia. Cardiovascular: She denies any chest pain or palpitations. Respiratory: She denies any shortness of breath. Gastrointestinal: She reports decreased appetite. Genitourinary: She reports dysuria. Musculoskeletal: She denies any muscle aches and pains. Skin: She denies any rashes or ulcers. Hematological/Oncological: She denies any easy bleeding or bruising. LUBE TECHNICIAN: She denies any strokes or seizures. All other review of systems is negative. PHYSICAL EXAMINATION: GENERAL APPEARANCE: The patient is awake, alert, oriented x3, laying in bed. VITAL SIGNS: T-max is 103.1 degrees Fahrenheit, T-current is 98.9 degrees Fahrenheit, blood pressure is 109/55, pulse is 107, respiratory rate of 18, saturating 99% on room air. HEAD AND NECK: Extraocular muscles intact. Pupils are equally round and reactive to light. Mucous membranes are moist. Neck is supple. There is no jugular venous distention. CARDIOVASCULAR: S1, S2, regular rate. EXTREMITIES: No edema of the bilateral lower extremities. RESPIRATORY: Chest is clear to auscultation bilaterally. Bilaterally currently no rales or rhonchi. ABDOMEN: Soft, positive bowel sounds. Right lower quadrant renal allograft was palpable and tender. No bruit is audible. MUSCULOSKELETAL: No clubbing, no cyanosis. Pulses are 2+. LUBE TECHNICIAN: No focal deficits. Power is 5/5 in all extremities. LAB REVIEW: CBC showed a WBC count of 20.2, hemoglobin 10.9, platelet count 252. Urinalysis showed cloudy urine with 2+ protein, 3+ blood, 3+ leukocyte esterase, too numerous to count WBCs. test is negative. BMP showed sodium of 134, potassium 4.3, chloride 102, bicarbonate 23, BUN 34, creatinine is 3.3, lactic acid 1.9, calcium 7.9, procalcitonin is pending. Tacrolimus level is pending. Microbiology: Urine culture and blood cultures are pending. IMAGING: A CAT scan of the abdomen and pelvis was done which showed bladder wall thickening and mild infiltration of perivascular fat. Five multiplied by 4.5 by 5.2 cm structure with central hypodensity in the left adnexa, presumably enlarged left ovary. Renal transplant in the right iliac fossa with infiltration of the perinephric fat. CURRENT INPATIENT MEDICATIONS: The patient's medications were all reviewed by myself. She has been started on Meropenem 500 mg IV q. 12 hourly. She was given normal saline bolus about 2.5 liters and is getting normal saline at 125 mL an hour, Tylenol p.r.n. I gave the patient a dose of Hydrocortisone 100 mg IV times one dose. She is on Zofran p.r.n. She has been started on home dose of Prednisone 5 mg p.o. daily, and I have restarted her home Prograf with a lower dose of 0.5 mg p.o. twice daily. HOME MEDICATIONS: In her home medications she takes: 1. Myfortic 720 mg p.o. twice daily. 2. Her Tacrolimus dose is 2 mg p.o. twice daily. However it is being modified because of sepsis. ASSESSMENT AND PLAN: 1. Sepsis secondary to acute pyelonephritis the patient is immunocompromised. She has a urinary tract infection. Urinary tract infection in a transplant patient is always considered a complicated urinary tract infection. She presented with high fevers, leukocytosis and tachycardia and hypotension. She got a fluid bolus. Continue normal saline at this time. Continue Meropenem for extended coverage. Once we have the culture sensitivity results back, antibiotics will be tapered down. 2. Acute renal failure superimposed on chronic kidney disease - the patient's baseline creatinine is 1.6. She is in acute renal failure because of hypotension, sepsis, and acute pyelonephritis. Continue the fluid and antibiotics at this time. 3. Renal allograft status - The patient's Myfortic is being held because of pyelonephritis and sepsis. I am giving her a lower dose of Prograf because of renal failure and low GFR. Continue home dose of Prednisone 5 mg p.o. daily, and since she is a [facility] user of Prednisone, she was given a stress dose of Hydrocortisone 100 mg IV times one dose. 4. Anemia in chronic kidney disease - hemoglobin is 10.9 which is optimal at this time. The patient's iron levels will be checked as she will be given iron once the acute infection is over. Thank you for involving me in the care of this patient. I shall be happy to follow the patient along with you tomorrow morning.
[2020-11-30] MEDS: TACROLIMUS 0.5 MG CAP PO SCH ×2 (13:51→20:23)
[2020-11-30 15:01] LABS: ALBUMIN 2.6 GM/DL (3.2-5.2); CALCIUM LEVEL 6.9 MG/DL (8.5-10.1); CREATININE FOR GFR 3.43 MG/DL (0.55-1.30); GLOMERULAR FILTRATION RATE 15.8 (>60); POTASSIUM SERUM 3.8 MEQ/L (3.5-5.1)
[2020-11-30 16:00] VITALS: BP 104/61
[2020-11-30] MEDS: MEROPENEM INJ 500 MG in IV 1 EA IV SCH (17:42)
[2020-11-30 20:24] VITALS: BP 115/80
[2020-12-01] MEDS ORDERED: LORATADINE 10 MG TAB PO ONE
[2020-12-01] MEDS ORDERED: PILL CUTTER 1 EACH XX PRN (00:05)
[2020-12-01 00:07] VITALS: BP 104/56
[2020-12-01] MEDS: ACETAMINOPHEN TAB 650MG DOSE (2X325MG) PO PRN ×3 (00:58→10:56)
[2020-12-01 04:07] VITALS: BP 143/78
[2020-12-01] MEDS: NS 1,000 ML IV SCH (04:07)
[2020-12-01 05:33] LABS: HEMATOCRIT 27.6 % (36.0-47.0); HEMOGLOBIN 8.9 g/dl (12.0-15.5); MEAN CORPUSCULAR HEMOGLOBIN 27.2 pg (27.0-33.0); MEAN CORPUSCULAR HGB CONC 32.2 g/dl (32.0-36.5); MEAN CORPUSCULAR VOLUME 84.4 fl (80.0-96.0); PLATELET COUNT, AUTOMATED 171 10^3/uL (150-450); RED BLOOD COUNT 3.27 10^6/uL (4.00-5.40); WHITE BLOOD COUNT 9.2 10^3/uL (4.0-10.0)
[2020-12-01] MEDS: MEROPENEM INJ 500 MG in IV 1 EA IV SCH ×2 (05:47→18:53)
[2020-12-01 06:02] LABS: ALBUMIN 2.3 GM/DL (3.2-5.2); BILIRUBIN,TOTAL 0.2 MG/DL (0.2-1.0); CALCIUM LEVEL 6.7 MG/DL (8.5-10.1); CREATININE FOR GFR 3.09 MG/DL (0.55-1.30); GLOMERULAR FILTRATION RATE 17.9 (>60); MAGNESIUM LEVEL 1.6 MG/DL (1.8-2.4); PERCENT SATURATION 3.4 % (13.2-45.0); POTASSIUM SERUM 3.3 MEQ/L (3.5-5.1); TOTAL PROTEIN 5.3 GM/DL (6.4-8.2)
[2020-12-01] MEDS ORDERED: MAG SULF 1GM/100ML (MAG RUN) 1 GM in IV 1 EA IV ONE (06:45)
[2020-12-01] MEDS ORDERED: POTASSIUM CHLORIDE 10 MEQ SR TABLET PO ONE (06:45)
[2020-12-01 08:00] VITALS: BP 103/62
[2020-12-01] MEDS: HEPARIN SOD (PORCINE) 5000UNITS/ML 1ML VIAL/SYRINGE SC SCH ×2 (08:04→20:16)
[2020-12-01] MEDS ORDERED: FUROSEMIDE 20MG/2ML VIAL (J1940) IV ONE (08:10)
[2020-12-01] MEDS: TACROLIMUS 0.5 MG CAP PO SCH ×2 (09:57→20:16)
[2020-12-01] MEDS: predniSONE 5 MG TAB PO SCH (09:57)
--- NOTE | 2020-12-01 10:36 | IPN ---
NEPHROLOGY PROGRESS NOTE DATE: 12/01/2020 SUBJECTIVE: Patient was seen and examined at the bedside today morning. Patient is afebrile now, but reports that she is still feeling the same as yesterday. She is not having any more chills or rigors. She complains of having puffy legs because of all the intravenous (IV) fluids that we have given her. There is very slight improvement in the renal function. Creatinine is down to 3 today. OBJECTIVE: VITAL SIGNS: Temperature 98 degrees Fahrenheit, blood pressure 143/78, pulse 95, respiratory rate 16, saturating 93% on room air. INTAKE AND OUTPUT: Urine output recorded as 450 mL. Weight in the bed scale is 89.6 kg, which is about 4 kg above her weight from yesterday. PHYSICAL EXAMINATION: GENERAL: Patient is awake, alert, oriented times three, laying in bed, no apparent distress. HEAD AND NECK EXAM: Extraocular muscles intact. Pupils equally round and reactive to light. Mucous membranes are moist. Neck is supple. There is no significant jugular venous distention (JVD). CARDIOVASCULAR: S1, S2. Regular rate. Trace edema of the bilateral lower extremities. RESPIRATORY: Mildly decreased breath sounds at the bases and respiratory crackles at the bases, left more than right. ABDOMEN: Soft. Positive bowel sounds. Right lower quadrant renal allograft with mild tenderness. MUSCULOSKELETAL: No clubbing or cyanosis. Pulses are 2+. CENTRAL NERVOUS SYSTEM (OPERATIONS PROJECT MANAGER): No focal deficit. Power is 5/5 in all extremities. LABORATORY STUDIES: CBC showed WBC 9.2, which is significantly better than yesterday, hemoglobin 8.9, platelets 171. BMP showed sodium 143, potassium 3.3, chloride 115, bicarbonate 21, BUN 34, creatinine 3, it was 3.4 yesterday, calcium 6.7, magnesium 1.6. Iron is 6, transferrin saturation 3.4, ferritin 178. Albumin is 2.3. Tacrolimus level is pending. CURRENT INPATIENT MEDICATIONS: Patient's medications were all reviewed by myself. I have stopped her IV fluids now. She was given a dose of IV magnesium sulfate. She continues to be on meropenem 500 mg every 12 hours. I gave her a dose of Lasix 20 mg IV times one dose and she continues to be on prednisone 5 mg daily along with tacrolimus 0.5 mg by mouth twice a day. Mycophenolate is on hold. She was also given a dose of potassium chloride 40 mEq. ASSESSMENT AND PLAN: 1. Sepsis secondary to acute pyelonephritis. Patient's leukocytosis is better. She is not having any more fever spikes since overnight. Continue IV meropenem. IV fluids are being stopped. 2. Acute renal allograft failure. It is secondary to sepsis and pyelonephritis. I am hopeful that her renal function will start getting better. Volume status is optimal now. 3. Renal allograft status. Patient's Myfortic is on hold because of sepsis. The tacrolimus dose was decreased to 0.5 mg by mouth twice a day only. Continue current dose of prednisone. 4. Iron deficiency anemia. Patient has acute infection at this time. I am going to start her on oral iron once the infection gets better. Then she will be given IV iron infusion. 5. Hypokalemia. It is secondary to aggressive use of IV fluids without any potassium. Patient was given one dose of potassium chloride. 6. Hyperchloremic metabolic acidosis. Patient's IV normal saline has bee stopped. Bicarbonate level is 21, which is in the acceptable range for now. 7. Lower extremity edema. Patient got aggressive IV fluid hydration. I have given her a small dose of Lasix 20 mg IV today.
[2020-12-01 10:55] VITALS: BP 107/63
[2020-12-01] MEDS: NORCO, ANEXSIA 5/325MG TABLET (HYDROcodone/ACETAMINOPHEN) PO PRN ×2 (11:17→17:41)
--- NOTE | 2020-12-01 11:19 | IPNPDOC ---
Text Note Date of Service The patient was seen on 12/01/20. NOTE Subjective: No any acute events overnight. No spiking fever. 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 Patient stated that she started feeling flank pain since Monday, she developed dysuria associated with rigors and fever. Patient stated that her fever was up to 103 Fahrenheit. Also she reported nausea. In ER patient was found to blood pressure of 88/55, tachycardia with heart rate around 110, white blood count of 20.2, creatinine 3.3. UA shows pyuria. (1) Sepsis/acute pyelonephritis Patient had fever, tachycardia, hypotension, leukocytosis on admission Most likely secondary to acute pyelonephritis Continue meropenem IV Today sepsis resolved Await blood culture (2) EVE (acute kidney injury)/Acute renal allograft failure Status post renal transplant Secondary to volume depletion due to severe sepsis Nephrology team follows here The tacrolimus dose was decreased to 0.5 mg by mouth twice a day only. Continue current dose of prednisone. Hypokalemia Replaced Normocytic anemia Most likely anemia of chronic diseases Iron supplementation on hold for now VS,Juan Franciscoe, I+O VS, Fishcarrilloe, I+O Laboratory Tests 11/30/20 14:21 12/01/20 05:21 Vital Signs Date Time Temp Pulse Resp B/P (MAP) Pulse Ox O2 Delivery O2 Flow Rate FiO2 12/01/20 10:55 99.9 97 107/63 (78) 12/01/20 08:00 16 94 Room Air I&O- Last 24 Hours up to 6 AM 12/01/20 06:00 Intake Total 4155 ml Output Total 450 ml Balance 3705 ml CRISTINA COTTON DO Dec 01, 2020 11:19
[2020-12-01 13:53] LABS: CALCIUM LEVEL 7.3 MG/DL (8.5-10.1); CREATININE FOR GFR 2.9 MG/DL (0.55-1.30); GLOMERULAR FILTRATION RATE 19.2 (>60); POTASSIUM SERUM 3.8 MEQ/L (3.5-5.1)
[2020-12-01 16:00] VITALS: BP 110/69
[2020-12-01 20:00] VITALS: BP 104/67
[2020-12-01] MEDS ORDERED: CALCIUM CARBONATE 500 MG CHEW U/D PO PRN (20:05)
[2020-12-02 00:15] VITALS: BP 110/70
[2020-12-02] MEDS: NORCO, ANEXSIA 5/325MG TABLET (HYDROcodone/ACETAMINOPHEN) PO PRN ×2 (01:11→08:03)
[2020-12-02 04:20] VITALS: BP 119/73
[2020-12-02] MEDS: MEROPENEM INJ 500 MG in IV 1 EA IV SCH (05:55)
[2020-12-02 07:34] LABS: BASO % 0.3 % (0.0-1.0); EOS # 0.2 10^3/uL (0.0-0.5); EOS % 2.4 % (0.0-3.0); HEMATOCRIT 28.7 % (36.0-47.0); HEMOGLOBIN 9.2 g/dl (12.0-15.5); LYMPH # 0.9 10^3/uL (1.5-5.0); LYMPH % 13.3 % (24.0-44.0); MEAN CORPUSCULAR HEMOGLOBIN 27.2 pg (27.0-33.0); MEAN CORPUSCULAR HGB CONC 32.1 g/dl (32.0-36.5); MEAN CORPUSCULAR VOLUME 84.9 fl (80.0-96.0); MONO # 0.5 10^3/uL (0.0-0.8); NEUTROPHILS % 75.4 % (36.0-66.0); PLATELET COUNT, AUTOMATED 215 10^3/uL (150-450); RED BLOOD COUNT 3.38 10^6/uL (4.00-5.40); WHITE BLOOD COUNT 6.6 10^3/uL (4.0-10.0)
[2020-12-02 07:56] LABS: ALBUMIN 2.7 GM/DL (3.2-5.2); CALCIUM LEVEL 7.6 MG/DL (8.5-10.1); CREATININE FOR GFR 2.5 MG/DL (0.55-1.30); GLOMERULAR FILTRATION RATE 22.8 (>60); PHOSPHORUS LEVEL 1.7 MG/DL (2.5-4.9)
[2020-12-02 08:00] VITALS: BP 121/76
[2020-12-02] MEDS: predniSONE 5 MG TAB PO SCH (08:03)
[2020-12-02] MEDS: HEPARIN SOD (PORCINE) 5000UNITS/ML 1ML VIAL/SYRINGE SC SCH ×2 (09:00→21:00)
--- NOTE | 2020-12-02 10:20 | IPNPDOC ---
Text Note Date of Service The patient was seen on 12/02/20. NOTE Subjective: Patient developed fever in the morning of 101. 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 Patient stated that she started feeling flank pain since Monday, she developed dysuria associated with rigors and fever. Patient stated that her fever was up to 103 Fahrenheit. Also she reported nausea. In ER patient was found to blood pressure of 88/55, tachycardia with heart rate around 110, white blood count of 20.2, creatinine 3.3. UA shows pyuria. (1) Sepsis/acute pyelonephritis/fever Patient had fever, tachycardia, hypotension, leukocytosis on admission Most likely secondary to acute pyelonephritis Blood culture negative, UA shows E. coli pansensitive I changed meropenem to ceftriaxone I will repeat blood culture, given spiking fever in the morning which can be also attributed to atelectasis. Incentive spirometry (2) EVE (acute kidney injury)/Acute renal allograft failure Status post renal transplant Secondary to volume depletion due to severe sepsis Nephrology team follows here The tacrolimus dose was decreased to 0.5 mg by mouth twice a day only. Continue current dose of prednisone. Hypokalemia Replaced Normocytic anemia Most likely anemia of chronic diseases Iron supplementation VS,Fishbone, I+O VS, Fishbone, I+O Laboratory Tests 12/01/20 12:56 12/02/20 06:57 Vital Signs Date Time Temp Pulse Resp B/P (MAP) Pulse Ox O2 Delivery O2 Flow Rate FiO2 12/02/20 08:33 18 12/02/20 08:00 101.0 99 121/76 (91) 94 Room Air I&O- Last 24 Hours up to 6 AM 12/02/20 06:00 Intake Total 2200 ml Output Total 1800 ml Balance 400 ml CRISTINA COTTON DO Dec 02, 2020 10:20
[2020-12-02] MEDS: TACROLIMUS 1 MG CAP (J7507) PO SCH ×2 (11:15→21:00)
[2020-12-02] MEDS: IRON SUCROSE 200 MG in NS 100 ML IV SCH (11:15)
[2020-12-02 12:00] VITALS: BP 114/75
[2020-12-02] MEDS: cefTRIAXone SOD 2 GM in D5W MINI-BAG PLUS 50 ML IV SCH (12:00)
--- NOTE | 2020-12-02 14:08 | IPN ---
NEPHROLOGY PROGRESS NOTE DATE: 12/02/2020 SUBJECTIVE: The patient was seen and examined at the bedside today morning. The patient had a fever spike today morning at 101 degrees Fahrenheit. She otherwise denies chills and rigors. Urine cultures came back positive for E-coli. She continues to be on IV antibiotics. Renal function is gradually improving. OBJECTIVE: VITAL SIGNS: Temperature is 98.3 degrees Fahrenheit, blood pressure 114/75, pulse is 95, respiratory rate of 18, saturating 96% on room air. INTAKE AND OUTPUT: Urine output recorded as 1.9 liters yesterday, 850 mL so far today since overnight. Weight in the bed scale is 86.5 kg. PHYSICAL EXAMINATION: GENERAL APPEARANCE: The patient is awake, alert, oriented x3, laying in bed in no apparent distress. HEAD AND NECK: Extraocular muscles intact. Pupils are equally round and reactive to light. Mucous membranes are moist. Neck is supple. There is no jugular venous distention. CARDIOVASCULAR: S1, S2, regular rate. EXTREMITIES: No edema of the bilateral lower extremities. RESPIRATORY: Chest is clear to auscultation bilaterally. Bilaterally currently no rales or rhonchi. ABDOMEN: Soft, positive bowel sounds, nontender, right lower quadrant renal allograft tenderness is significantly better. MUSCULOSKELETAL: No clubbing, no cyanosis. Pulses are 2+. SET RIDER: No focal deficits. Power is 5/5 in all extremities. LAB REVIEW: CBC showed a WBC count of 6.6. Hemoglobin 9.2, platelet count 215. BMP showed sodium 141, potassium 4, chloride 111, bicarbonate 23, BUN 29, creatinine is 2.5, it was 2.9 yesterday. Calcium is 7.6, phosphorous is 1.7. Microbiology: Urine culture is positive for E-coli which is pansensitive. CURRENT INPATIENT MEDICATIONS: The patient's medications were all reviewed by myself. Her IV Meropenem has been stopped. She has been started on Ceftriaxone 2 grams IV q. 24. She has also been started on Venofer 200 mg IV daily. I have increased the Tacrolimus dose to one mg p.o. twice daily. ASSESSMENT AND PLAN: 1. Acute pyelonephritis of the renal allograft - The patient is growing E-coli in the urine culture that is pansensitive. Antibiotic has been changed to Ceftriaxone. She is still spiking fevers at this time. Continue the IV antibiotics. 2. Acute renal allograft failure it was secondary to dehydration and sepsis, secondary to pyelonephritis. Antibiotic has been changed. She was hydrated with IV fluids. Yesterday she actually needed a dose of Lasix. Renal function is gradually improving. 3. Renal allograft status Myfortic is on hold because of infection. Tacrolimus is slowly being increased to one mg p.o. twice daily. Continue current dose of Prednisone. 4. Iron deficiency anemia - continue IV iron. 5. Metabolic acidosis she was given a dose of IV Lasix. Bicarbonate level is getting better with improving renal function.
[2020-12-02 20:00] VITALS: BP 137/85
[2020-12-02 22:00] VITALS: BP 137/85
[2020-12-03 03:16] VITALS: BP 136/94
[2020-12-03 06:51] VITALS: BP 123/79
[2020-12-03 07:04] LABS: BASO % 0.6 % (0.0-1.0); EOS # 0.2 10^3/uL (0.0-0.5); EOS % 4.5 % (0.0-3.0); HEMATOCRIT 28.3 % (36.0-47.0); LYMPH # 1.2 10^3/uL (1.5-5.0); LYMPH % 24.4 % (24.0-44.0); MEAN CORPUSCULAR HEMOGLOBIN 27.1 pg (27.0-33.0); MEAN CORPUSCULAR HGB CONC 31.8 g/dl (32.0-36.5); MEAN CORPUSCULAR VOLUME 85.2 fl (80.0-96.0); MONO # 0.6 10^3/uL (0.0-0.8); NEUTROPHILS # 2.7 10^3/uL (1.5-8.5); NEUTROPHILS % 56.1 % (36.0-66.0); PLATELET COUNT, AUTOMATED 231 10^3/uL (150-450); RED BLOOD COUNT 3.32 10^6/uL (4.00-5.40); WHITE BLOOD COUNT 4.8 10^3/uL (4.0-10.0)
[2020-12-03 07:34] LABS: ALBUMIN 2.7 GM/DL (3.2-5.2); CALCIUM LEVEL 8.3 MG/DL (8.5-10.1); CREATININE FOR GFR 1.99 MG/DL (0.55-1.30); GLOMERULAR FILTRATION RATE 29.7 (>60); POTASSIUM SERUM 4.4 MEQ/L (3.5-5.1)
[2020-12-03] MEDS: TACROLIMUS 1 MG CAP (J7507) PO SCH (08:33)
[2020-12-03] MEDS: IRON SUCROSE 200 MG in NS 100 ML IV SCH (08:33)
[2020-12-03] MEDS: HEPARIN SOD (PORCINE) 5000UNITS/ML 1ML VIAL/SYRINGE SC SCH (08:33)
[2020-12-03] MEDS: predniSONE 5 MG TAB PO SCH (08:33)
[2020-12-03] MEDS ORDERED: K-PHOS NEUTRAL 250MG TABLET (SOD.PHOSPHATE/POT.PHOSPHATE) PO SCH (09:00)
[2020-12-03] MEDS: cefTRIAXone SOD 2 GM in D5W MINI-BAG PLUS 50 ML IV SCH (10:04)
[2020-12-03] MEDS ORDERED: LEVO500T3 PO (10:05)
[2020-12-03] MEDS ORDERED: CEPH500C PO (10:27)
--- NOTE | 2020-12-03 12:11 | IPN ---
NEPHROLOGY PROGRESS NOTE DATE: 12/03/2020 SUBJECTIVE: Patient was seen and examined at the bedside today morning. She is afebrile, hemodynamically stable. She denies any active complaints. Nausea and vomiting has resolved. Renal function is improving. Creatinine has improved to 1.9. Her baseline creatinine is 1.6. She has improving urine output. OBJECTIVE: VITAL SIGNS: Temperature 96 degrees Fahrenheit, blood pressure 123/79, pulse 88, respiratory rate 18, saturating 98% on room air. INTAKE AND OUTPUT: Urine output recorded as 2 liters yesterday, 700 mL so far today since overnight. Weight in the bed scale is 85.3 kg. PHYSICAL EXAMINATION: GENERAL: Patient is awake, alert, oriented times three, laying in bed, no apparent distress. HEAD AND NECK EXAM: Extraocular muscles intact. Pupils equally round and reactive to light. Mucous membranes are moist. Neck is supple. There is no jugular venous distention (JVD). CARDIOVASCULAR: S1, S2. Regular rate. No edema of the bilateral lower extremities. RESPIRATORY: Chest is clear to auscultation bilaterally. Bilateral equal air entry. No rales or rhonchi. ABDOMEN: Soft. Positive bowel sounds. Nontender. No organomegaly MUSCULOSKELETAL: No clubbing or cyanosis. Pulses are 2+. CENTRAL NERVOUS SYSTEM (SENIOR FINANCIAL ACCOUNTANT): No focal deficit. Power is 5/5 in all extremities. GENITOURINARY: She has right lower quadrant renal allograft with no tenderness at this time. LABORATORY STUDIES: CBC showed WBC 4.8, hemoglobin 9, platelets 231. BMP showed sodium 143, potassium 4.4, chloride 113, bicarbonate 27, BUN 25, creatinine 1.9, it was 2.5 yesterday, phosphorus is 2. CURRENT INPATIENT MEDICATIONS: Patient's medications were all reviewed by myself. She continues to be on intravenous (IV) Venofer and ceftriaxone. I have started the patient on K-Phos 250 mg by mouth three times a day and I have increased the tacrolimus dose to 2 mg by mouth twice a day. ASSESSMENT AND PLAN: 1. Acute renal allograft failure secondary to pyelonephritis and sepsis. Renal function is improving. Creatinine is 1.9. Best baseline creatinine is 1.6. Okay to increase immunosuppression, as mentioned below. 2. Renal allograft status. Continue to hold Myfortic at this time, as she is on antibiotics. Continue prednisone 5 mg by mouth daily. Tacrolimus dose has been increased to 2 mg by mouth twice a day, which is her home dose. 3. Acute pyelonephritis of the renal allograft. Patient is growing Escherichia (E) coli, which is finley sensitive. Currently, she is on ceftriaxone. She will be switched to oral antibiotics on discharge from the hospital. 4. Iron deficiency anemia. Patient is getting IV iron. Hemoglobin level is stable and improving. 5. Hypophosphatemia. Patient has been started on K-Phos tablets. DISPOSITION: Patient is optimized from a nephrology standpoint to be discharged home. She can follow up with nephrology within one week after discharged from the hospital.
--- NOTE | 2020-12-03 16:16 | DS.PDOC ---
Discharge Summary General Date of Admission Nov 30, 2020 at 08:08 Date of Discharge 12/03/20 Discharge Summary PROCEDURES PERFORMED DURING STAY: [None]. ADMITTING DIAGNOSES: Sepsis/acute pyelonephritis/fever EVE (acute kidney injury)/Acute renal allograft failure Hypokalemia Normocytic anemia DISCHARGE DIAGNOSES: Sepsis/acute pyelonephritis/fever EVE (acute kidney injury)/Acute renal allograft failure Hypokalemia Normocytic anemia COMPLICATIONS/CHIEF COMPLAINT: Pyelonephritis. 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 Patient stated that she started feeling flank pain since Monday, she developed dysuria associated with rigors and fever. Patient stated that her fever was up to 103 Fahrenheit. Also she reported nausea. In ER patient was found to blood pressure of 88/55, tachycardia with heart rate around 110, white blood count of 20.2, creatinine 3.3. UA shows pyuria. HOSPITAL COURSE: During hospital stay the following issues addressed (1) Sepsis/acute pyelonephritis/fever Patient had fever, tachycardia, hypotension, leukocytosis on admission Most likely secondary to acute pyelonephritis Blood culture negative, UA shows E. coli pansensitive Patient received treatment with ceftriaxone and meropenem (2) EVE (acute kidney injury)/Acute renal allograft failure Status post renal transplant Secondary to volume depletion due to severe sepsis Nephrology team follows here The tacrolimus dose was decreased to 0.5 mg by mouth twice a day only. Continue current dose of prednisone. Hypokalemia Replaced Normocytic anemia Most likely anemia of chronic diseases Iron supplementation DISCHARGE MEDICATIONS: Please see below. ALLERGIES: Please see below. PHYSICAL EXAMINATION ON DISCHARGE: VITAL SIGNS: Please see below. GENERAL APPEARANCE: NAD HEENT: no scleral icterus, no JVD, EOMI CARDIOVASCULAR: S1S2 LUNGS: CTA ABDOMEN: soft & not tender w palpation MUSCULOSKELETAL: no cyanosis, no swelling INTEGUMENT: no generalized pallor NEUROLOGICAL: cranial nerve function from 2-12 intact i, follows commands, speech not dysarthric LABORATORY DATA: Please see below. PROGNOSIS: Fair ACTIVITY: [As tolerated]. DIET: Renal DISCHARGE PLAN: Continue to hold Myfortic at this time, as she is on antibiotics. DISPOSITION: 01 Home, Self-Care. DISCHARGE INSTRUCTIONS: Follow-up with nephrology team in 1 week DISCHARGE CONDITION: [Stable]. TIME SPENT ON DISCHARGE: 40 minutes. Vital Signs/I&Os Vital Signs Date Time Temp Pulse Resp B/P (MAP) Pulse Ox O2 Delivery O2 Flow Rate FiO2 12/03/20 06:51 96.0 88 18 123/79 (94) 98 Room Air I&O- Last 24 Hours up to 6 AM 12/03/20 06:00 Intake Total 1950 ml Output Total 1850 ml Balance 100 ml Laboratory Data Labs 24H Laboratory Tests 2 12/03/20 06:34: Immature Granulocyte % (Auto) 1.4, Neutrophils (%) (Auto) 56.1, Lymphocytes (%) (Auto) 24.4, Monocytes (%) (Auto) 13.0H, Eosinophils (%) (Auto) 4.5H, Basophils (%) (Auto) 0.6, Neutrophils # (Auto) 2.7, Lymphocytes # (Auto) 1.2L, Monocytes # (Auto) 0.6, Eosinophils # (Auto) 0.2, Basophils # (Auto) 0.0, Nucleated Red Blood Cells % (auto) 0.0, Anion Gap 3L, Glomerular Filtration Rate 29.7L, Calc ium Level 8.3L, Phosphorus Level 2.0L, Albumin 2.7L CBC/BMP Laboratory Tests 12/03/20 06:34 Microbiology Microbiology 12/02/20 Blood Culture - Preliminary, Resulted No growth after 24 hours . All specim... 12/02/20 Blood Culture - Preliminary, Resulted No growth after 24 hours . All specim... 11/30/20 Blood Culture - Preliminary, Resulted No Growth after 72 hours. All specime... 11/30/20 Blood Culture - Preliminary, Resulted No Growth after 72 hours. All specime... 11/29/20 Urine Culture - Final, Complete Escherichia Coli Discharge Medications Scheduled Ascorbic Acid/Elderberry Fruit (Elderberry-Vit C 50-100 mg Ch) 100 Mg-50 Mg Tab.chew, 1 TAB PO DAILY, (Reported) Cephalexin (Cephalexin) 500 Mg Capsule, 500 MG PO QID Cholecalciferol (Vitamin D3) (Vitamin D3) 1,000 Unit Tablet, 1,000 UNITS PO DAILY, (Reported) Mycophenolate Sodium (Myfortic) 360 Mg Tablet.dr, 720 MG PO BID, (Reported) Prednisone (Prednisone) 5 Mg Tablet, 5 MG PO DAILY, (Reported) Tacrolimus (Tacrolimus) 1 Mg Cap, 2 MG PO BID, (Reported) Scheduled PRN Hydrocodone/Acetaminophen (Hydrocodone-Acetamin 5-325 mg) 1 Each Tablet, 1 TAB PO Q6H PRN for PAIN, (Reported) Allergies Coded Allergies: amoxicillin (Verified Allergy, Unknown, rash, 01/12/19) iodine (Verified Allergy, Unknown, rash, 01/12/19) CRISTINA COTTON DO Dec 03, 2020 16:16
[2020-12-03] MEDS ORDERED: TACROLIMUS 1 MG CAP (J7507) PO SCH ×2 (21:00)
== END 2020-12-03 11:49 | disposition home or self-care (01) | DRG 698 ==
LOC: M ED 22:01 → M ED INP 11-30 08:08 → ENRESERVDT 11-30 09:14 → ENRESERVTM 11-30 09:14 → M PCU 11-30 10:26 → M MSPAV 12-03 03:13
PROVIDERS: ADMIT Internal Medicine; ATTEND Internal Medicine
DX: T86.13 Kidney transplant infection (principal); A41.9 Sepsis, unspecified organism; R65.20 Severe sepsis without septic shock; N17.9 Acute kidney failure, unspecified; N10 Acute pyelonephritis; E87.2 Acidosis; T86.12 Kidney transplant failure; N18.30 Chronic kidney disease, stage 3 unspecified; D50.9 Iron deficiency anemia, unspecified; I12.9 Hypertensive chronic kidney disease with stage 1 through stage 4 chronic kidney disease, or unspecified chronic kidney disease; E87.6 Hypokalemia; E86.0 Dehydration; R60.0 Localized edema; E83.39 Other disorders of phosphorus metabolism; B96.20 Unspecified Escherichia coli [E. coli] as the cause of diseases classified elsewhere; D63.1 Anemia in chronic kidney disease; Z88.0 Allergy status to penicillin; Z90.721 Acquired absence of ovaries, unilateral; Z20.822 Contact with and (suspected) exposure to COVID-19; Z90.710 Acquired absence of both cervix and uterus; Z88.8 Allergy status to other drugs, medicaments and biological substances; Z79.899 Other long term (current) drug therapy

== ENCOUNTER → 2020-12-17 | Outpatient (REF) | payer MEDICARE, OTHER ==
[~2020-12-17] MED LIST changes: +CEPH500C PO; +D31000TA2 PO
[2020-12-17 14:33] LABS: MAGNESIUM LEVEL 2.1 MG/DL (1.8-2.4); PERCENT SATURATION 27.1 % (13.2-45.0)
== END ==
LOC: M LAB REF 13:15
PROVIDERS: ATTEND Internal Medicine Nephrology
DX: Z48.22 Encounter for aftercare following kidney transplant (principal); Z94.0 Kidney transplant status; N18.32 Chronic kidney disease, stage 3b; D63.1 Anemia in chronic kidney disease; E83.42 Hypomagnesemia

== ENCOUNTER → 2021-02-05 | Outpatient (REF) | payer MEDICARE, OTHER | LOC: M LAB REF 13:00 | PROVIDERS: ATTEND Internal Medicine Nephrology | DX: Z94.0 Kidney transplant status (principal); E83.42 Hypomagnesemia; Z48.22 Encounter for aftercare following kidney transplant; N18.32 Chronic kidney disease, stage 3b ==